=== PATIENT | male | born 1965 | race Two or more races ===

== ENCOUNTER 2019-11-01 22:02 | Inpatient (IN) ==
[2019-11-01] MEDS ORDERED: ONDANSETRON 4 MG/2 ML VIAL IV STA (23:04)
[2019-11-01] MEDS ORDERED: ALUM/MAG/SIMETH/LIDO VISC 1:1 30 ML BOTTLE PO STA (23:04)
[2019-11-01] MEDS ORDERED: MORPHINE 4 MG/1 ML VIAL IV STA (23:04)
[2019-11-01] MEDS ORDERED: NITROGLYCERIN 2% OINT 1 INCH/GM PACK TOP STA (23:04)
[2019-11-01] MEDS ORDERED: ASPIRIN 325 MG TABLET PO STA (23:04)
[2019-11-02 00:10] LABS: Basophils # 0.1 10*3/uL (0.0-0.2); Basophils % 0.7 % (0.0-0.8); Eosinophils # 0.2 10*3/uL (0.0-0.87); Eosinophils % 2.5 % (0.00-10.9); Hematocrit 39.4 VOL% (42.0-52.0); Hemoglobin 12.6 GM/DL (14.0-18.0); Immature Granulocytes % 0.4 %; Immature Granulocytes Absolute 0.03 #; Lymphocytes # 1.3 10*3/uL (1.4-4.0); Lymphocytes % 18.2 % (21.2-54.2); Mean Corpuscular Volume 99.2 FL (87-102); Mean Platelet Volume 11.1 FL (9.6-12.0); Monocytes % 6.8 % (1.7-12.7); Neutrophils % 71.4 % (38.7-73.9); Platelet Count 272 T/CUMM (130-400); Red Blood Count 3.97 MC/CUMM (3.8-5.5); Red Cell Distribution Width 14.5 % (9.3-17.3); White Blood Count 7.1 T/CUMM (4-12)
[2019-11-02] MEDS ORDERED: hydrALAZINE 20 MG/1 ML VIAL IV STA ×2 (00:53→05:47)
[2019-11-02] MEDS ORDERED: hydrALAZINE 20 MG/1 ML VIAL ONE (00:57)
[2019-11-02 03:25] LABS: Albumin 3.3 G/DL (3.4-5.0); Bilirubin,Total 0.9 MG/DL (0.2-1.0); Calcium 9.2 MG/DL (8.5-10.1); Osmolality,Calculated 278.8 MOS/KG (273-304); Total Protein 6.3 G/DL (6.4-8.3)
[2019-11-02] MEDS ORDERED: MORPHINE 4 MG/1 ML VIAL IV PRN (04:08)
[2019-11-02] MEDS ORDERED: ONDANSETRON 4 MG/2 ML VIAL IV PRN (04:08)
[2019-11-02] MEDS ORDERED: ACETAMINOPHEN 325 MG TABLET PO PRN (04:08)
[2019-11-02 05:16] LABS: INR 1.1
[2019-11-02 05:59] LABS: Risk Ratio 2.19; VLDL CHOLESTEROL 18.8 MG/DL
[2019-11-02] MEDS ORDERED: GLUCAGON 1 MG VIAL IM PRN (06:14)
[2019-11-02] MEDS ORDERED: DEXTROSE 50% 25 GM/50 ML SYRINGE IV PRN (06:24)
[2019-11-02] MEDS: INSULIN REGULAR 100 UNIT/ML SUBCUT SCH ×4 (07:53→22:46)
[2019-11-02] MEDS: CLOPIDOGREL 75 MG TABLET PO SCH (10:35)
[2019-11-02] MEDS: LOSARTAN 25 MG TABLET PO SCH (10:35)
[2019-11-02] MEDS: ASPIRIN EC 81 MG TABLET PO SCH (10:35)
[2019-11-02] MEDS: ATORVASTATIN 40 MG TABLET PO SCH (10:35)
[2019-11-02] MEDS: PANTOPRAZOLE 40 MG TABLET PO SCH (10:36)
[2019-11-02] MEDS: METOPROLOL TARTRATE 25 MG TABLET PO SCH ×2 (10:36→21:46)
[2019-11-02] MEDS: ENOXAPARIN 30 MG/0.3 ML SYRINGE SUBCUT SCH (10:40)
[2019-11-02] MEDS: amLODIPine 5 MG TABLET PO SCH (13:05)
[2019-11-02 13:18] LABS: Troponin I 0.361 NG/ML (0.00-0.045)
[2019-11-02] MEDS: GABAPENTIN 300 MG CAPSULE PO SCH (21:46)
[2019-11-02] MEDS: TAMSULOSIN 0.4 MG CAPSULE PO SCH (21:46)
[2019-11-02] MEDS: traZODone 50 MG TABLET PO SCH (21:46)
[2019-11-02] MEDS: NON-FORMULARY MEDICATION (Dextromethorphan-Quinidine [Nuedexta] 1 CAPSULE) PO SCH (22:47)
[2019-11-03 05:49] LABS: Basophils # 0.1 10*3/uL (0.0-0.2); Eosinophils # 0.2 10*3/uL (0.0-0.87); Eosinophils % 3.3 % (0.00-10.9); Hematocrit 38.6 VOL% (42.0-52.0); Hemoglobin 11.8 GM/DL (14.0-18.0); Immature Granulocytes % 0.2 %; Immature Granulocytes Absolute 0.01 #; Lymphocytes # 1.6 10*3/uL (1.4-4.0); Lymphocytes % 25.6 % (21.2-54.2); Mean Corpuscular HGB Conc 30.6 GM/DL (32-36); Mean Platelet Volume 11.4 FL (9.6-12.0); Monocytes % 8.3 % (1.7-12.7); Neutrophils % 61.6 % (38.7-73.9); Platelet Count 243 T/CUMM (130-400); Red Blood Count 3.82 MC/CUMM (3.8-5.5); Red Cell Distribution Width 14.4 % (9.3-17.3); White Blood Count 6.3 T/CUMM (4-12)
[2019-11-03 06:05] LABS: Calcium 8.4 MG/DL (8.5-10.1); Osmolality,Calculated 277.7 MOS/KG (273-304)
[2019-11-03 06:41] LABS: Troponin I 0.553 NG/ML (0.00-0.045)
[2019-11-03] MEDS: INSULIN REGULAR 100 UNIT/ML SUBCUT SCH ×4 (10:25→21:23)
[2019-11-03] MEDS: TAMSULOSIN 0.4 MG CAPSULE PO SCH ×2 (12:59→21:15)
[2019-11-03] MEDS: METOPROLOL TARTRATE 25 MG TABLET PO SCH ×2 (12:59→21:15)
[2019-11-03] MEDS: SEVELAMER CARBONATE 800 MG TABLET PO SCH ×4 (12:59→17:35)
[2019-11-03] MEDS: ASPIRIN EC 81 MG TABLET PO SCH (12:59)
[2019-11-03] MEDS: SERTRALINE 25 MG TABLET PO SCH (12:59)
[2019-11-03] MEDS: NON-FORMULARY MEDICATION (Dextromethorphan-Quinidine [Nuedexta] 1 CAPSULE) PO SCH ×2 (13:00→21:22)
[2019-11-03] MEDS: LOSARTAN 25 MG TABLET PO SCH (13:00)
[2019-11-03] MEDS: ATORVASTATIN 40 MG TABLET PO SCH (13:00)
[2019-11-03] MEDS: CLOPIDOGREL 75 MG TABLET PO SCH (13:00)
[2019-11-03] MEDS: amLODIPine 5 MG TABLET PO SCH (13:00)
[2019-11-03] MEDS: ENOXAPARIN 30 MG/0.3 ML SYRINGE SUBCUT SCH (13:02)
[2019-11-03] MEDS: PANTOPRAZOLE 40 MG TABLET PO SCH (13:02)
[2019-11-03] MEDS: LEVOTHYROXINE 25 MCG TABLET PO SCH (13:05)
[2019-11-03] MEDS: GABAPENTIN 300 MG CAPSULE PO SCH (21:15)
[2019-11-03] MEDS: traZODone 50 MG TABLET PO SCH (21:15)
[2019-11-04 05:45] LABS: Basophils # 0.1 10*3/uL (0.0-0.2); Basophils % 1.3 % (0.0-0.8); Eosinophils # 0.2 10*3/uL (0.0-0.87); Eosinophils % 4.2 % (0.00-10.9); Hematocrit 38.5 VOL% (42.0-52.0); Immature Granulocytes % 0.4 %; Immature Granulocytes Absolute 0.02 #; Lymphocytes # 1.7 10*3/uL (1.4-4.0); Lymphocytes % 31.6 % (21.2-54.2); Mean Corpuscular HGB Conc 31.2 GM/DL (32-36); Mean Corpuscular Volume 99.2 FL (87-102); Mean Platelet Volume 11.4 FL (9.6-12.0); Monocytes % 9.6 % (1.7-12.7); Neutrophils % 52.9 % (38.7-73.9); Platelet Count 241 T/CUMM (130-400); Red Blood Count 3.88 MC/CUMM (3.8-5.5); Red Cell Distribution Width 14.2 % (9.3-17.3); White Blood Count 5.5 T/CUMM (4-12)
[2019-11-04 06:13] LABS: Calcium 8.3 MG/DL (8.5-10.1); Osmolality,Calculated 279.8 MOS/KG (273-304)
[2019-11-04 08:02] VITALS: BP 175/77
[2019-11-04] MEDS: INSULIN REGULAR 100 UNIT/ML SUBCUT SCH ×2 (08:54→11:50)
[2019-11-04] MEDS ORDERED: ISOSORBIDE MONONITRATE 30 MG TABLET PO SCH (09:00)
[2019-11-04] MEDS ORDERED: EPOETIN ALFA 10,000 UNIT/1 ML VIAL SUBCUT SCH (09:00)
[2019-11-04] MEDS: SEVELAMER CARBONATE 800 MG TABLET PO SCH ×2 (12:29→15:42)
[2019-11-04] MEDS: TAMSULOSIN 0.4 MG CAPSULE PO SCH (15:41)
[2019-11-04] MEDS: SERTRALINE 25 MG TABLET PO SCH (15:41)
[2019-11-04] MEDS: NON-FORMULARY MEDICATION (Dextromethorphan-Quinidine [Nuedexta] 1 CAPSULE) PO SCH (15:42)
[2019-11-04] MEDS: ASPIRIN EC 81 MG TABLET PO SCH (15:42)
[2019-11-04] MEDS: amLODIPine 5 MG TABLET PO SCH (15:42)
[2019-11-04] MEDS: ENOXAPARIN 30 MG/0.3 ML SYRINGE SUBCUT SCH (15:43)
[2019-11-04] MEDS: LEVOTHYROXINE 25 MCG TABLET PO SCH (15:43)
[2019-11-04] MEDS: CLOPIDOGREL 75 MG TABLET PO SCH (15:43)
[2019-11-04] MEDS: LOSARTAN 25 MG TABLET PO SCH (15:43)
[2019-11-04] MEDS: METOPROLOL TARTRATE 25 MG TABLET PO SCH (15:43)
[2019-11-04] MEDS: ATORVASTATIN 40 MG TABLET PO SCH (15:43)
[2019-11-04] MEDS: PANTOPRAZOLE 40 MG TABLET PO SCH (15:43)
== END 2019-11-04 16:40 | disposition home or self-care (01) | DRG 291 ==
LOC: N.EDINP 22:02 → N.ED 22:02 → SUATTDRO 11-02 04:08 → N.2W 11-02 08:10 → N.TELES 11-02 18:02
PROVIDERS: ADMIT Internal Medicine; ATTEND Internal Medicine

== ENCOUNTER 2019-12-26 22:50 | Inpatient (IN) ==
[2019-12-26] MEDS ORDERED: SODIUM CHLORIDE 0.9% 500 ML IV STA (23:18)
[2019-12-26] MEDS ORDERED: ONDANSETRON 4 MG/2 ML VIAL IV STA (23:18)
[2019-12-27 00:18] LABS: Basophils # 0.1 10*3/uL (0.0-0.2); Basophils % 1.4 % (0.0-0.8); Eosinophils # 0.4 10*3/uL (0.0-0.87); Eosinophils % 5.1 % (0.00-10.9); Hemoglobin 9.2 GM/DL (14.0-18.0); Immature Granulocytes % 3.8 %; Immature Granulocytes Absolute 0.27 #; Lymphocytes # 1.9 10*3/uL (1.4-4.0); Lymphocytes % 26.5 % (21.2-54.2); Mean Corpuscular HGB Conc 31.7 GM/DL (32-36); Mean Corpuscular Volume 95.7 FL (87-102); Mean Platelet Volume 11.5 FL (9.6-12.0); Monocytes % 9.1 % (1.7-12.7); Neutrophils % 54.1 % (38.7-73.9); Platelet Count 265 T/CUMM (130-400); Red Blood Count 3.03 MC/CUMM (3.8-5.5)
[2019-12-27 00:43] LABS: Albumin 3.5 G/DL (3.4-5.0); Bilirubin,Total 0.6 MG/DL (0.2-1.0); Calcium 8.5 MG/DL (8.5-10.1); Osmolality,Calculated 305.2 MOS/KG (273-304); Total Protein 7.3 G/DL (6.4-8.3)
[2019-12-27] MEDS ORDERED: INSULIN REGULAR 100 UNIT/ML IV STA (00:49)
[2019-12-27] MEDS ORDERED: DEXTROSE 50% 25 GM/50 ML VIAL IV STA (00:49)
[2019-12-27] MEDS ORDERED: DEXTROSE 10% 250 ML IV ONE (01:24)
[2019-12-27] MEDS ORDERED: DEXTROSE 50% 25 GM/50 ML SYRINGE IV STA (01:33)
[2019-12-27] MEDS ORDERED: DEXTROSE 50% 25 GM/50 ML SYRINGE IV PRN (02:46)
[2019-12-27] MEDS ORDERED: ONDANSETRON 4 MG/2 ML VIAL IV PRN (02:46)
[2019-12-27] MEDS ORDERED: GLUCAGON 1 MG VIAL IM PRN ×2 (02:46→02:49)
[2019-12-27] MEDS ORDERED: DEXTROSE 50% 25 GM/50 ML VIAL IV PRN (02:49)
[2019-12-27] MEDS ORDERED: SODIUM POLYSTYRENE SULFATE 15 GM/60 ML BOTTLE PO STA (02:52)
[2019-12-27] MEDS ORDERED: CALCIUM GLUCONATE 1,000 MG in SODIUM CHLORIDE 0.9% 100 ML IV ONE (02:53)
[2019-12-27] MEDS ORDERED: BENZONATATE 100 MG CAPSULE PO PRN (03:02)
[2019-12-27 03:11] LABS: Risk Ratio 3.08; VLDL CHOLESTEROL 18.8 MG/DL
[2019-12-27 03:21] LABS: Thyroid Stimulating Hormone 6.51 uIU/ml (0.358-3.74)
[2019-12-27 05:22] LABS: Basophils # 0.1 10*3/uL (0.0-0.2); Eosinophils # 0.3 10*3/uL (0.0-0.87); Eosinophils % 3.7 % (0.00-10.9); Hematocrit 29.4 VOL% (42.0-52.0); Hemoglobin 9.3 GM/DL (14.0-18.0); Immature Granulocytes % 3.5 %; Immature Granulocytes Absolute 0.29 #; Lymphocytes # 1.8 10*3/uL (1.4-4.0); Lymphocytes % 21.5 % (21.2-54.2); Mean Corpuscular HGB Conc 31.6 GM/DL (32-36); Mean Corpuscular Volume 96.1 FL (87-102); Mean Platelet Volume 11.7 FL (9.6-12.0); Monocytes % 9.9 % (1.7-12.7); Neutrophils % 60.4 % (38.7-73.9); Platelet Count 277 T/CUMM (130-400); Red Blood Count 3.06 MC/CUMM (3.8-5.5); Red Cell Distribution Width 14.2 % (9.3-17.3); White Blood Count 8.4 T/CUMM (4-12)
[2019-12-27 05:34] LABS: Calcium 8.4 MG/DL (8.5-10.1); Osmolality,Calculated 313.8 MOS/KG (273-304)
[2019-12-27 06:25] LABS: Hepatitis B Core IgM Quant 0.13 Index; Hepatitis B Surface Ag Quant < 0.10 Index; Hepatitis B Surface Ag Result Negative (Negative); Hepatitis C Virus Ab Quant 0.07 Index; Hepatitis C Virus Ab Result Negative (Negative)
[2019-12-27 08:53] LABS: Apearance,Urine CLEAR (Clear); Bilirubin,Urine Negative (Negative); Blood, Urine Small mg/dL (Negative); Glucose,Urine (UA) 150 mg/dL (Negative); Ketones,Urine Negative (Negative); Mucus,Urine Occasional /LPF (Occasional); Nitrite,Urine Negative (Negative); Protein,Urine >=500 MG/DL; RBC,Urine 2 /HPF (0-4); Sperm,Urine Few /HPF (Negative); Squamous Epithelial Cell,Urine Occasional /HPF (0-10); Urine Color Yellow (Yellow); Urine Specific Gravity 1.016 (1.001-1.035); Urine Urobilinogen < 2.0 EU/DL (0.2-1.0); WBC,Urine 3 /HPF (0-6)
[2019-12-27] MEDS: INSULIN LISPRO 100 UNIT/ML SUBCUT SCH ×4 (13:42→21:26)
[2019-12-27] MEDS: FUROSEMIDE 40 MG TABLET PO SCH ×2 (13:43→13:45)
[2019-12-27] MEDS: CLOPIDOGREL 75 MG TABLET PO SCH (13:44)
[2019-12-27] MEDS: METOPROLOL TARTRATE 25 MG TABLET PO SCH ×2 (13:44→21:25)
[2019-12-27] MEDS: ISOSORBIDE MONONITRATE 30 MG TABLET PO SCH (13:45)
[2019-12-27] MEDS: SEVELAMER CARBONATE 800 MG TABLET PO SCH ×3 (13:45→17:33)
[2019-12-27] MEDS: ASPIRIN EC 81 MG TABLET PO SCH (13:45)
[2019-12-27] MEDS: TAMSULOSIN 0.4 MG CAPSULE PO SCH (13:45)
[2019-12-27] MEDS: PANTOPRAZOLE 40 MG TABLET PO SCH (13:46)
[2019-12-27] MEDS: amLODIPine 5 MG TABLET PO SCH (13:46)
[2019-12-27] MEDS: LOSARTAN 25 MG TABLET PO SCH (13:46)
[2019-12-27] MEDS: GABAPENTIN 300 MG CAPSULE PO SCH (21:25)
[2019-12-27] MEDS: INSULIN GLARGINE 100 UNIT/ML SUBCUT SCH (21:25)
[2019-12-28] MEDS: LEVOTHYROXINE 25 MCG TABLET PO SCH (06:13)
[2019-12-28] MEDS: ASPIRIN EC 81 MG TABLET PO SCH (09:27)
[2019-12-28] MEDS: amLODIPine 5 MG TABLET PO SCH (09:27)
[2019-12-28] MEDS: FUROSEMIDE 40 MG TABLET PO SCH ×2 (09:28→14:32)
[2019-12-28] MEDS: TAMSULOSIN 0.4 MG CAPSULE PO SCH (09:28)
[2019-12-28] MEDS: METOPROLOL TARTRATE 25 MG TABLET PO SCH ×2 (09:28→16:52)
[2019-12-28] MEDS: ISOSORBIDE MONONITRATE 30 MG TABLET PO SCH (09:29)
[2019-12-28] MEDS: PANTOPRAZOLE 40 MG TABLET PO SCH (09:29)
[2019-12-28] MEDS: LOSARTAN 25 MG TABLET PO SCH (09:29)
[2019-12-28] MEDS: SEVELAMER CARBONATE 800 MG TABLET PO SCH ×3 (09:29→16:52)
[2019-12-28] MEDS: CLOPIDOGREL 75 MG TABLET PO SCH (09:29)
[2019-12-28 09:30] LABS: Basophils # 0.1 10*3/uL (0.0-0.2); Basophils % 0.6 % (0.0-0.8); Eosinophils # 0.3 10*3/uL (0.0-0.87); Eosinophils % 3.3 % (0.00-10.9); Hematocrit 28.9 VOL% (42.0-52.0); Hemoglobin 9.2 GM/DL (14.0-18.0); Immature Granulocytes % 2.2 %; Immature Granulocytes Absolute 0.17 #; Lymphocytes # 1.7 10*3/uL (1.4-4.0); Lymphocytes % 22.1 % (21.2-54.2); Mean Corpuscular HGB Conc 31.8 GM/DL (32-36); Mean Corpuscular Volume 93.8 FL (87-102); Mean Platelet Volume 11.7 FL (9.6-12.0); Monocytes % 7.7 % (1.7-12.7); NRBC # 0.02 10*3/uL; Neutrophils % 64.1 % (38.7-73.9); Platelet Count 270 T/CUMM (130-400); Red Blood Count 3.08 MC/CUMM (3.8-5.5); Red Cell Distribution Width 14.3 % (9.3-17.3); White Blood Count 7.8 T/CUMM (4-12)
[2019-12-28 10:32] LABS: Calcium 8.3 MG/DL (8.5-10.1); Osmolality,Calculated 290.2 MOS/KG (273-304)
[2019-12-28] MEDS ORDERED: POLYETHYLENE GLYCOL POWDER 17 GM PACK PO PRN (11:14)
[2019-12-28] MEDS: INSULIN LISPRO 100 UNIT/ML SUBCUT SCH ×3 (12:37→23:31)
[2019-12-28] MEDS: GABAPENTIN 300 MG CAPSULE PO SCH (21:25)
[2019-12-28] MEDS: INSULIN GLARGINE 100 UNIT/ML SUBCUT SCH (21:27)
[2019-12-29 04:33] LABS: Basophils # 0.1 10*3/uL (0.0-0.2); Basophils % 0.9 % (0.0-0.8); Eosinophils # 0.2 10*3/uL (0.0-0.87); Eosinophils % 3.3 % (0.00-10.9); Hematocrit 29.1 VOL% (42.0-52.0); Hemoglobin 9.3 GM/DL (14.0-18.0); Immature Granulocytes % 1.5 %; Lymphocytes # 1.6 10*3/uL (1.4-4.0); Lymphocytes % 23.2 % (21.2-54.2); Mean Corpuscular Volume 94.8 FL (87-102); Mean Platelet Volume 11.6 FL (9.6-12.0); Monocytes % 8.2 % (1.7-12.7); Neutrophils % 62.9 % (38.7-73.9); Platelet Count 259 T/CUMM (130-400); Red Blood Count 3.07 MC/CUMM (3.8-5.5); Red Cell Distribution Width 14.1 % (9.3-17.3); White Blood Count 6.7 T/CUMM (4-12)
[2019-12-29 05:03] LABS: Calcium 8.4 MG/DL (8.5-10.1); Osmolality,Calculated 291.4 MOS/KG (273-304)
[2019-12-29] MEDS: LEVOTHYROXINE 25 MCG TABLET PO SCH (05:39)
[2019-12-29] MEDS: INSULIN LISPRO 100 UNIT/ML SUBCUT SCH ×4 (09:05→21:18)
[2019-12-29] MEDS: ISOSORBIDE MONONITRATE 30 MG TABLET PO SCH (13:24)
[2019-12-29] MEDS: ASPIRIN EC 81 MG TABLET PO SCH (13:24)
[2019-12-29] MEDS: METOPROLOL TARTRATE 25 MG TABLET PO SCH ×2 (13:24→16:38)
[2019-12-29] MEDS: amLODIPine 5 MG TABLET PO SCH (13:25)
[2019-12-29] MEDS: PANTOPRAZOLE 40 MG TABLET PO SCH (13:25)
[2019-12-29] MEDS: FUROSEMIDE 40 MG TABLET PO SCH ×2 (13:26→14:14)
[2019-12-29] MEDS: TAMSULOSIN 0.4 MG CAPSULE PO SCH (13:26)
[2019-12-29] MEDS: CLOPIDOGREL 75 MG TABLET PO SCH (13:26)
[2019-12-29] MEDS: SEVELAMER CARBONATE 800 MG TABLET PO SCH ×3 (13:26→16:38)
[2019-12-29] MEDS: LOSARTAN 25 MG TABLET PO SCH (13:27)
[2019-12-29] MEDS: GABAPENTIN 300 MG CAPSULE PO SCH (21:18)
[2019-12-29] MEDS: INSULIN GLARGINE 100 UNIT/ML SUBCUT SCH (21:22)
[2019-12-30] MEDS: LEVOTHYROXINE 25 MCG TABLET PO SCH (06:21)
[2019-12-30] MEDS: INSULIN LISPRO 100 UNIT/ML SUBCUT SCH ×3 (07:42→15:39)
[2019-12-30] MEDS: PANTOPRAZOLE 40 MG TABLET PO SCH (08:13)
[2019-12-30] MEDS: METOPROLOL TARTRATE 25 MG TABLET PO SCH (08:13)
[2019-12-30] MEDS: amLODIPine 5 MG TABLET PO SCH (08:13)
[2019-12-30] MEDS: ISOSORBIDE MONONITRATE 30 MG TABLET PO SCH (08:13)
[2019-12-30] MEDS: LOSARTAN 25 MG TABLET PO SCH (08:13)
[2019-12-30] MEDS: TAMSULOSIN 0.4 MG CAPSULE PO SCH (08:13)
[2019-12-30] MEDS: SEVELAMER CARBONATE 800 MG TABLET PO SCH ×2 (08:13→12:30)
[2019-12-30] MEDS: FUROSEMIDE 40 MG TABLET PO SCH ×2 (08:14→15:10)
[2019-12-30] MEDS: ASPIRIN EC 81 MG TABLET PO SCH (08:14)
[2019-12-30] MEDS: CLOPIDOGREL 75 MG TABLET PO SCH (08:14)
[2019-12-30 09:45] LABS: Basophils # 0.1 10*3/uL (0.0-0.2); Basophils % 1.5 % (0.0-0.8); Eosinophils # 0.2 10*3/uL (0.0-0.87); Eosinophils % 4.3 % (0.00-10.9); Hemoglobin 8.6 GM/DL (14.0-18.0); Immature Granulocytes % 0.9 %; Immature Granulocytes Absolute 0.05 #; Lymphocytes # 1.4 10*3/uL (1.4-4.0); Lymphocytes % 26.8 % (21.2-54.2); Mean Corpuscular HGB Conc 31.9 GM/DL (32-36); Mean Corpuscular Volume 95.1 FL (87-102); Mean Platelet Volume 10.9 FL (9.6-12.0); Monocytes % 8.7 % (1.7-12.7); Neutrophils % 57.8 % (38.7-73.9); Platelet Count 232 T/CUMM (130-400); Red Blood Count 2.84 MC/CUMM (3.8-5.5); Red Cell Distribution Width 13.9 % (9.3-17.3); White Blood Count 5.3 T/CUMM (4-12)
[2019-12-30 10:05] LABS: Calcium 8.1 MG/DL (8.5-10.1)
[2019-12-30 15:55] VITALS: BP 147/74
== END 2019-12-30 16:00 | disposition home health service (06) | DRG 640 ==
LOC: N.ED 22:50 → N.EDINP 12-27 02:46 → N.TELES 12-27 11:29
PROVIDERS: ADMIT Family Medicine; ATTEND Family Medicine

== ENCOUNTER 2020-02-02 00:38 | Inpatient (IN) ==
[2020-02-02] MEDS ORDERED: LORazepam 2 MG/1 ML VIAL IV STA ×2 (00:59→07:37)
[2020-02-02] MEDS ORDERED: methylPREDNISolone SOD SUC 125 MG/2 ML VIAL IV STA (01:38)
[2020-02-02] MEDS ORDERED: AZITHROMYCIN INJ 500 MG in SODIUM CHLORIDE 0.9% 250 ML IV STA (01:39)
[2020-02-02 01:57] LABS: INR 1.2; PT Patient Result 13.2 SECS (9.8-11.9); Partial Thromboplastin Time 24.2 SECS (23.9-33.8)
[2020-02-02 02:07] LABS: Alanine Aminotransferase 36 U/L (16-61); Albumin 3.3 G/DL (3.4-5.0); Alkaline Phosphatase 67 U/L (45-117); Aspartate Amino Transferase 34 U/L (0-37); Blood Urea Nitrogen 18 MG/DL (7-18); Calcium 9.4 MG/DL (8.5-10.1); Estimated Glom Filtration Rate 12 ML/MIN; Ferritin 423.3 ng/ml (26-388); Glucose 107 MG/DL (74-106); Osmolality,Calculated 274.8 MOS/KG (273-304); Total Protein 7.4 G/DL (6.4-8.3)
[2020-02-02 02:08] LABS: Troponin I 0.743 NG/ML (0.00-0.045)
[2020-02-02 02:12] LABS: Basophils # 0.1 10*3/uL (0.0-0.2); Basophils % 0.5 % (0.0-0.8); Eosinophils # 0.4 10*3/uL (0.0-0.87); Eosinophils % 3.2 % (0.00-10.9); Hematocrit 29.7 VOL% (42.0-52.0); Hemoglobin 9.6 GM/DL (14.0-18.0); Immature Granulocytes % 1.2 %; Immature Granulocytes Absolute 0.15 #; Lymphocytes # 1.8 10*3/uL (1.4-4.0); Lymphocytes % 14.7 % (21.2-54.2); Mean Corpuscular HGB Conc 32.3 GM/DL (32-36); Mean Corpuscular Volume 91.7 FL (87-102); Mean Platelet Volume 10.4 FL (9.6-12.0); Monocytes % 6.1 % (1.7-12.7); Neutrophils % 74.3 % (38.7-73.9); Platelet Count 563 T/CUMM (130-400); Red Blood Count 3.24 MC/CUMM (3.8-5.5); Red Cell Distribution Width 15.4 % (9.3-17.3); White Blood Count 12.1 T/CUMM (4-12)
[2020-02-02] MEDS ORDERED: NICOTINE 21 MG/24 HR PATCH TRANSDERM PRN (03:41)
[2020-02-02] MEDS ORDERED: GLUCAGON 1 MG VIAL IM PRN (03:41)
[2020-02-02] MEDS ORDERED: ONDANSETRON 4 MG/2 ML VIAL IV PRN (03:41)
[2020-02-02] MEDS ORDERED: DEXTROSE 50% 25 GM/50 ML VIAL IV PRN (03:41)
[2020-02-02] MEDS ORDERED: hydrALAZINE 20 MG/1 ML VIAL IV PRN (03:41)
[2020-02-02] MEDS ORDERED: ACETAMINOPHEN 325 MG TABLET PO PRN (03:41)
[2020-02-02] MEDS ORDERED: LORazepam 1 MG TABLET PO PRN (03:59)
[2020-02-02 05:53] LABS: Allen Test Positive
[2020-02-02 05:55] LABS: ABG Base Excess 8.3 MMOL/L (-2.5-2.5); ABG Oxygen Saturation 92.7 % (95-100); ABG PCO2 46.2 MM HG (35-48); ABG PH 7.463 (7.35-7.45); ABG PO2 66.3 MM HG (80-95); ABG TCO2 30.5 MMOL/L (23-27)
[2020-02-02] MEDS ORDERED: ETOMIDATE 20 MG/10 ML VIAL IV ONE (07:09)
[2020-02-02] MEDS ORDERED: VECURONIUM 10 MG VIAL IV ONE (07:11)
[2020-02-02] MEDS: INSULIN REGULAR 100 UNIT/ML SUBCUT SCH ×3 (07:38→16:59)
[2020-02-02] MEDS ORDERED: AZITHROMYCIN 250 MG TABLET PO SCH (09:00)
[2020-02-02 09:05] LABS: Hepatitis B Core IgM Quant 0.07 Index; Hepatitis B Surface Ag Quant < 0.10 Index; Hepatitis B Surface Ag Result Negative (Negative); Hepatitis C Virus Ab Quant 0.18 Index; Hepatitis C Virus Ab Result Negative (Negative)
[2020-02-02] MEDS: traMADol 50 MG TABLET PO PRN (13:18)
[2020-02-02] MEDS ORDERED: METHOCARBAMOL 750 MG TABLET PO PRN (15:00)
[2020-02-02 16:58] LABS: ABG Base Excess 5.7 MMOL/L (-2.5-2.5); ABG HCO3 29.6 MMOL/L (20-26); ABG Oxygen Saturation 95.3 % (95-100); ABG PCO2 32.4 MM HG (35-48); ABG PH 7.547 (7.35-7.45); ABG PO2 68.1 MM HG (80-95); ABG TCO2 25.6 MMOL/L (23-27); Allen Test Positive
[2020-02-02] MEDS: ALPRAZolam 0.25 MG TABLET PO PRN (17:30)
[2020-02-02] MEDS ORDERED: LORazepam 2 MG/1 ML VIAL IV ONE (17:44)
[2020-02-02] MEDS ORDERED: LORazepam 2 MG/1 ML VIAL ONE (17:47)
[2020-02-02] MEDS: SEVELAMER CARBONATE 800 MG TABLET PO SCH (17:50)
[2020-02-02] MEDS: NON-FORMULARY MEDICATION PO SCH (18:00)
[2020-02-03] MEDS: INSULIN REGULAR 100 UNIT/ML SUBCUT SCH ×5 (01:28→23:15)
[2020-02-03 04:39] LABS: ABG Base Excess 7.6 MMOL/L (-2.5-2.5); ABG HCO3 31.2 MMOL/L (20-26); ABG Oxygen Saturation 87.1 % (95-100); ABG PCO2 47.1 MM HG (35-48); ABG PH 7.448 (7.35-7.45); ABG TCO2 30.1 MMOL/L (23-27); Allen Test Positive
[2020-02-03] MEDS: NON-FORMULARY MEDICATION PO SCH ×2 (06:25→17:50)
[2020-02-03 08:07] LABS: Basophils % 0.2 % (0.0-0.8); Eosinophils # 0.1 10*3/uL (0.0-0.87); Eosinophils % 0.7 % (0.00-10.9); Hematocrit 28.3 VOL% (42.0-52.0); Hemoglobin 9.1 GM/DL (14.0-18.0); Immature Granulocytes % 1.2 %; Immature Granulocytes Absolute 0.15 #; Lymphocytes # 1.5 10*3/uL (1.4-4.0); Lymphocytes % 12.2 % (21.2-54.2); Mean Corpuscular HGB Conc 32.2 GM/DL (32-36); Mean Corpuscular Volume 93.4 FL (87-102); Mean Platelet Volume 10.2 FL (9.6-12.0); Monocytes % 6.7 % (1.7-12.7); Platelet Count 487 T/CUMM (130-400); Red Blood Count 3.03 MC/CUMM (3.8-5.5); White Blood Count 12.7 T/CUMM (4-12)
[2020-02-03 08:23] LABS: Calcium 9.6 MG/DL (8.5-10.1); Osmolality,Calculated 284.7 MOS/KG (273-304)
[2020-02-03] MEDS: TAMSULOSIN 0.4 MG CAPSULE PO SCH (08:43)
[2020-02-03] MEDS: SEVELAMER CARBONATE 800 MG TABLET PO SCH ×3 (08:43→17:50)
[2020-02-03] MEDS: ASPIRIN EC 81 MG TABLET PO SCH (08:43)
[2020-02-03] MEDS: ATORVASTATIN 40 MG TABLET PO SCH (08:44)
[2020-02-03] MEDS: amLODIPine 5 MG TABLET PO SCH (08:44)
[2020-02-03] MEDS: ISOSORBIDE MONONITRATE 30 MG TABLET PO SCH (08:44)
[2020-02-03] MEDS: LEVOTHYROXINE 50 MCG TABLET PO SCH (08:45)
[2020-02-03] MEDS: CLOPIDOGREL 75 MG TABLET PO SCH (08:45)
[2020-02-03] MEDS: AZITHROMYCIN 250 MG TABLET PO SCH (09:45)
[2020-02-03] MEDS: cefTRIAXone 1,000 MG in SYRINGE 1 EACH IV SCH (10:50)
[2020-02-04] MEDS: NON-FORMULARY MEDICATION PO SCH ×2 (06:30→18:25)
[2020-02-04] MEDS: INSULIN REGULAR 100 UNIT/ML SUBCUT SCH ×3 (06:30→18:24)
[2020-02-04] MEDS: cefTRIAXone 1,000 MG in SYRINGE 1 EACH IV SCH (08:30)
[2020-02-04] MEDS: SEVELAMER CARBONATE 800 MG TABLET PO SCH ×3 (08:58→18:30)
[2020-02-04] MEDS: ISOSORBIDE MONONITRATE 30 MG TABLET PO SCH (12:28)
[2020-02-04] MEDS: ASPIRIN EC 81 MG TABLET PO SCH (12:28)
[2020-02-04] MEDS: TAMSULOSIN 0.4 MG CAPSULE PO SCH (12:28)
[2020-02-04] MEDS: ATORVASTATIN 40 MG TABLET PO SCH (12:29)
[2020-02-04] MEDS: LEVOTHYROXINE 50 MCG TABLET PO SCH (12:29)
[2020-02-04] MEDS: AZITHROMYCIN 250 MG TABLET PO SCH (12:29)
[2020-02-04] MEDS: CLOPIDOGREL 75 MG TABLET PO SCH (12:29)
[2020-02-04] MEDS: amLODIPine 5 MG TABLET PO SCH (12:29)
[2020-02-04] MEDS: traMADol 50 MG TABLET PO PRN ×2 (12:57→20:00)
[2020-02-05] MEDS: INSULIN REGULAR 100 UNIT/ML SUBCUT SCH ×4 (00:01→17:30)
[2020-02-05] MEDS: NON-FORMULARY MEDICATION PO SCH ×2 (05:28→17:31)
[2020-02-05 06:19] LABS: Basophils # 0.1 10*3/uL (0.0-0.2); Basophils % 0.7 % (0.0-0.8); Eosinophils # 0.7 10*3/uL (0.0-0.87); Eosinophils % 8.4 % (0.00-10.9); Hematocrit 32.1 VOL% (42.0-52.0); Hemoglobin 10.1 GM/DL (14.0-18.0); Immature Granulocytes % 1.4 %; Immature Granulocytes Absolute 0.11 #; Lymphocytes # 1.9 10*3/uL (1.4-4.0); Lymphocytes % 23.7 % (21.2-54.2); Mean Corpuscular HGB Conc 31.5 GM/DL (32-36); Mean Corpuscular Volume 93.9 FL (87-102); Mean Platelet Volume 10.5 FL (9.6-12.0); Monocytes % 8.7 % (1.7-12.7); Neutrophils % 57.1 % (38.7-73.9); Platelet Count 518 T/CUMM (130-400); Red Blood Count 3.42 MC/CUMM (3.8-5.5); White Blood Count 8.1 T/CUMM (4-12)
[2020-02-05 07:18] LABS: Calcium 9.6 MG/DL (8.5-10.1)
[2020-02-05] MEDS: ALPRAZolam 0.25 MG TABLET PO PRN (08:33)
[2020-02-05] MEDS: ASPIRIN EC 81 MG TABLET PO SCH (08:33)
[2020-02-05] MEDS: SEVELAMER CARBONATE 800 MG TABLET PO SCH ×3 (08:34→16:56)
[2020-02-05] MEDS: amLODIPine 5 MG TABLET PO SCH (08:34)
[2020-02-05] MEDS: LEVOTHYROXINE 50 MCG TABLET PO SCH (08:34)
[2020-02-05] MEDS: ISOSORBIDE MONONITRATE 30 MG TABLET PO SCH (08:34)
[2020-02-05] MEDS: CLOPIDOGREL 75 MG TABLET PO SCH (08:34)
[2020-02-05] MEDS: ATORVASTATIN 40 MG TABLET PO SCH (08:34)
[2020-02-05] MEDS: TAMSULOSIN 0.4 MG CAPSULE PO SCH (08:34)
[2020-02-05] MEDS: AZITHROMYCIN 250 MG TABLET PO SCH (08:34)
[2020-02-05] MEDS: cefTRIAXone 1,000 MG in SYRINGE 1 EACH IV SCH (09:18)
[2020-02-05 13:00] LABS: ABG Base Excess 3.5 MMOL/L (-2.5-2.5); ABG HCO3 27.5 MMOL/L (20-26); ABG Oxygen Saturation 98.7 % (95-100); ABG PCO2 44.4 MM HG (35-48); ABG PH 7.415 (7.35-7.45)
[2020-02-06] MEDS: INSULIN REGULAR 100 UNIT/ML SUBCUT SCH ×2 (01:06→05:41)
[2020-02-06] MEDS: NON-FORMULARY MEDICATION PO SCH (05:41)
[2020-02-06] MEDS: TAMSULOSIN 0.4 MG CAPSULE PO SCH (08:15)
[2020-02-06] MEDS: AZITHROMYCIN 250 MG TABLET PO SCH (08:15)
[2020-02-06] MEDS: LEVOTHYROXINE 50 MCG TABLET PO SCH (08:15)
[2020-02-06] MEDS: SEVELAMER CARBONATE 800 MG TABLET PO SCH (08:15)
[2020-02-06] MEDS: ASPIRIN EC 81 MG TABLET PO SCH (08:15)
[2020-02-06] MEDS: ISOSORBIDE MONONITRATE 30 MG TABLET PO SCH (08:15)
[2020-02-06] MEDS: amLODIPine 5 MG TABLET PO SCH (08:15)
[2020-02-06] MEDS: ATORVASTATIN 40 MG TABLET PO SCH (08:15)
[2020-02-06] MEDS: CLOPIDOGREL 75 MG TABLET PO SCH (08:15)
[2020-02-06 08:58] VITALS: BP 132/83
[2020-02-06] MEDS: cefTRIAXone 1,000 MG in SYRINGE 1 EACH IV SCH (10:15)
== END 2020-02-06 11:05 | disposition home health service (06) | DRG 291 ==
LOC: N.ED 00:38 → SUATTDRO 03:10 → N.EDINP 03:10 → N.2E 05:30 → N.ICU 06:29 → N.3E 02-04 15:42 → N.2E 02-04 16:51
PROVIDERS: ADMIT Internal Medicine; ATTEND Family Medicine

== ENCOUNTER 2020-06-08 10:55 | Inpatient (IN) ==
[2020-06-08 12:16] LABS: Basophils # 0.1 10*3/uL (0.0-0.2); Basophils % 0.8 % (0.0-0.8); Eosinophils # 0.3 10*3/uL (0.0-0.87); Hematocrit 21.9 VOL% (42.0-52.0); Immature Granulocytes % 0.5 %; Immature Granulocytes Absolute 0.04 #; Lymphocytes # 1.4 10*3/uL (1.4-4.0); Lymphocytes % 17.3 % (21.2-54.2); Mean Corpuscular Volume 92.8 FL (87-102); Monocytes % 7.1 % (1.7-12.7); Neutrophils % 70.3 % (38.7-73.9); Platelet Count 194 T/CUMM (130-400); Red Blood Count 2.36 MC/CUMM (3.8-5.5); Red Cell Distribution Width 16.1 % (9.3-17.3); White Blood Count 8.3 T/CUMM (4-12)
[2020-06-08 13:17] LABS: Albumin 3.5 G/DL (3.4-5.0); Bilirubin,Total 0.4 MG/DL (0.2-1.0); Calcium 9.9 MG/DL (8.5-10.1); Total Protein 6.4 G/DL (6.4-8.3)
[2020-06-08] MEDS ORDERED: INSULIN REGULAR 10 UNIT, CALCIUM GLUCONATE 1,000 MG in DEXTROSE 10% 250 ML IV ONE (13:24)
[2020-06-08] MEDS ORDERED: SODIUM POLYSTYRENE SULFATE 15 GM/60 ML BOTTLE ONE (14:45)
[2020-06-08] MEDS ORDERED: SODIUM POLYSTYRENE SULFATE 15 GM/60 ML BOTTLE PO STA (14:52)
[2020-06-08] MEDS ORDERED: ACETAMINOPHEN 325 MG TABLET PO PRN (15:39)
[2020-06-08] MEDS ORDERED: DEXTROSE 50% 25 GM/50 ML VIAL IV PRN (15:39)
[2020-06-08] MEDS ORDERED: ONDANSETRON 4 MG/2 ML VIAL IV PRN (15:39)
[2020-06-08] MEDS ORDERED: GLUCAGON 1 MG VIAL IM PRN (15:39)
[2020-06-08] MEDS ORDERED: SODIUM CHLORIDE 0.9% 1,000 ML IV PRN (15:41)
[2020-06-08] MEDS ORDERED: traMADol 50 MG TABLET PO PRN (15:42)
[2020-06-08] MEDS ORDERED: LORATADINE 10 MG TABLET PO PRN (15:42)
[2020-06-08] MEDS: SODIUM CHLORIDE 0.9% 1,000 ML IV SCH (16:15)
[2020-06-08] MEDS: INSULIN REGULAR 100 UNIT/ML SUBCUT SCH ×2 (16:15→21:28)
[2020-06-08 16:32] LABS: Hematocrit 19.2 VOL% (42.0-52.0)
[2020-06-08 16:41] LABS: Hemoglobin 6.2 GM/DL (14.0-18.0)
[2020-06-08] MEDS: CARBIDOPA/LEVODOPA 25-100 MG TABLET PO SCH (21:27)
[2020-06-08] MEDS: GABAPENTIN 300 MG CAPSULE PO SCH (21:27)
[2020-06-08] MEDS: SEVELAMER CARBONATE POWDER 2.4 GM PACK PO SCH (21:27)
[2020-06-08] MEDS: LANTHANUM 500 MG PO SCH (21:28)
[2020-06-08] MEDS: INSULIN GLARGINE 100 UNIT/ML SUBCUT SCH (21:29)
[2020-06-08] MEDS: NON-FORMULARY MEDICATION (Dextromethorphan-Quinidine [Nuedexta] 1 CAPSULE) PO SCH (21:29)
[2020-06-09] MEDS: SODIUM CHLORIDE 0.9% 1,000 ML IV SCH ×2 (01:00→20:59)
[2020-06-09] MEDS: tiZANidine 4 MG TABLET PO PRN ×2 (02:09→22:50)
[2020-06-09 03:12] LABS: Basophils # 0.1 10*3/uL (0.0-0.2); Basophils % 0.6 % (0.0-0.8); Eosinophils # 0.5 10*3/uL (0.0-0.87); Eosinophils % 6.2 % (0.00-10.9); Hematocrit 22.1 VOL% (42.0-52.0); Hemoglobin 7.2 GM/DL (14.0-18.0); Immature Granulocytes % 0.4 %; Immature Granulocytes Absolute 0.03 #; Lymphocytes # 1.6 10*3/uL (1.4-4.0); Lymphocytes % 18.5 % (21.2-54.2); Mean Corpuscular HGB Conc 32.6 GM/DL (32-36); Mean Corpuscular Volume 90.6 FL (87-102); Monocytes % 6.4 % (1.7-12.7); Neutrophils % 67.9 % (38.7-73.9); Platelet Count 251 T/CUMM (130-400); Red Blood Count 2.44 MC/CUMM (3.8-5.5); Red Cell Distribution Width 15.5 % (9.3-17.3); White Blood Count 8.4 T/CUMM (4-12)
[2020-06-09 03:27] LABS: Calcium 9.1 MG/DL (8.5-10.1); Osmolality,Calculated 293.8 MOS/KG (273-304); Risk Ratio 2.97; VLDL CHOLESTEROL 22.4 MG/DL
[2020-06-09] MEDS: LEVOTHYROXINE 50 MCG TABLET PO SCH (06:19)
[2020-06-09] MEDS ORDERED: SODIUM CHLORIDE 0.9% 1,000 ML IV PRN (07:22)
[2020-06-09] MEDS ORDERED: LIDOCAINE/PRILOCAINE CREAM 5 GM TUBE TOP ONE (09:00)
[2020-06-09 09:27] LABS: Hematocrit 21.7 VOL% (42.0-52.0)
[2020-06-09] MEDS: INSULIN REGULAR 100 UNIT/ML SUBCUT SCH ×3 (18:33→21:40)
[2020-06-09] MEDS: LANTHANUM 500 MG PO SCH ×2 (18:34→18:35)
[2020-06-09] MEDS: CARBIDOPA/LEVODOPA 25-100 MG TABLET PO SCH ×2 (18:35→21:42)
[2020-06-09] MEDS: NON-FORMULARY MEDICATION (Dextromethorphan-Quinidine [Nuedexta] 1 CAPSULE) PO SCH ×2 (18:35→21:43)
[2020-06-09] MEDS: SEVELAMER CARBONATE POWDER 2.4 GM PACK PO SCH (18:35)
[2020-06-09] MEDS: ATORVASTATIN 40 MG TABLET PO SCH (18:35)
[2020-06-09] MEDS: TAMSULOSIN 0.4 MG CAPSULE PO SCH (18:35)
[2020-06-09] MEDS: DOCUSATE/SENNA 50-8.6 MG TABLET PO SCH ×2 (18:36→21:42)
[2020-06-09] MEDS: INSULIN GLARGINE 100 UNIT/ML SUBCUT SCH (21:42)
[2020-06-09] MEDS: GABAPENTIN 300 MG CAPSULE PO SCH (21:42)
[2020-06-09 21:53] LABS: Hematocrit 23.2 VOL% (42.0-52.0); Hemoglobin 7.4 GM/DL (14.0-18.0)
[2020-06-10 02:58] LABS: Hemoglobin 8.4 GM/DL (14.0-18.0)
[2020-06-10] MEDS ORDERED: FUROSEMIDE 40 MG/4 ML VIAL IV ONE ×2 (03:38→08:56)
[2020-06-10] MEDS: LEVOTHYROXINE 50 MCG TABLET PO SCH (06:45)
[2020-06-10] MEDS ORDERED: methylPREDNISolone SOD SUC 40 MG/1 ML VIAL IV ONE (08:57)
[2020-06-10] MEDS ORDERED: ALBUTEROL/IPRATROPIUM 3 ML NEB RESP TX ONE (09:36)
[2020-06-10] MEDS: TAMSULOSIN 0.4 MG CAPSULE PO SCH (10:20)
[2020-06-10] MEDS: ATORVASTATIN 40 MG TABLET PO SCH (10:26)
[2020-06-10] MEDS: DOCUSATE/SENNA 50-8.6 MG TABLET PO SCH ×2 (10:26→20:19)
[2020-06-10] MEDS: INSULIN REGULAR 100 UNIT/ML SUBCUT SCH ×4 (10:28→20:19)
[2020-06-10] MEDS ORDERED: METOPROLOL TARTRATE 50 MG TABLET PO PRN (10:29)
[2020-06-10] MEDS: SEVELAMER CARBONATE POWDER 2.4 GM PACK PO SCH ×3 (10:35→19:01)
[2020-06-10] MEDS: LANTHANUM 500 MG PO SCH ×3 (10:35→18:59)
[2020-06-10] MEDS: NON-FORMULARY MEDICATION (Dextromethorphan-Quinidine [Nuedexta] 1 CAPSULE) PO SCH ×2 (10:36→20:19)
[2020-06-10 10:38] LABS: Alanine Aminotransferase 15 U/L (16-61); Albumin 3.7 G/DL (3.4-5.0); Alkaline Phosphatase 46 U/L (45-117); Aspartate Amino Transferase 56 U/L (0-37); Bilirubin,Total < 0.39 MG/DL (0.2-1.0); Blood Urea Nitrogen 96 MG/DL (7-18); Estimated Glom Filtration Rate 5 ML/MIN; Glucose 157 MG/DL (74-106); Osmolality,Calculated 302.1 MOS/KG (273-304); Total Protein 6.7 G/DL (6.4-8.3)
[2020-06-10 10:42] LABS: Basophils % 0.4 % (0.0-0.8); Eosinophils # 0.1 10*3/uL (0.0-0.87); Eosinophils % 0.9 % (0.00-10.9); Hematocrit 26.8 VOL% (42.0-52.0); Hemoglobin 8.6 GM/DL (14.0-18.0); Immature Granulocytes % 0.3 %; Immature Granulocytes Absolute 0.03 #; Lymphocytes # 0.9 10*3/uL (1.4-4.0); Lymphocytes % 9.5 % (21.2-54.2); Mean Corpuscular HGB Conc 32.1 GM/DL (32-36); Mean Corpuscular Volume 92.4 FL (87-102); Mean Platelet Volume 10.6 FL (9.6-12.0); Monocytes % 5.6 % (1.7-12.7); Neutrophils % 83.3 % (38.7-73.9); Platelet Count 234 T/CUMM (130-400); Red Cell Distribution Width 15.9 % (9.3-17.3); White Blood Count 9.1 T/CUMM (4-12)
[2020-06-10] MEDS ORDERED: hydrALAZINE 20 MG/1 ML VIAL IV PRN (11:04)
[2020-06-10] MEDS: CARBIDOPA/LEVODOPA 25-100 MG TABLET PO SCH ×2 (11:38→20:19)
[2020-06-10] MEDS: LOSARTAN 25 MG TABLET PO SCH (12:38)
[2020-06-10] MEDS: NITROGLYCERIN 2% OINT 1 INCH/GM PACK TOP SCH ×2 (12:39→19:01)
[2020-06-10] MEDS: ENOXAPARIN 80 MG/0.8 ML SYRINGE SUBCUT SCH (12:39)
[2020-06-10] MEDS: ISOSORBIDE MONONITRATE 30 MG TABLET PO SCH (12:39)
[2020-06-10 13:12] LABS: CKMB % 1.7 %
[2020-06-10 13:15] LABS: Troponin I 6.61 NG/ML (0.00-0.045)
[2020-06-10] MEDS: GABAPENTIN 300 MG CAPSULE PO SCH (20:19)
[2020-06-10] MEDS: tiZANidine 4 MG TABLET PO PRN (20:19)
[2020-06-10] MEDS: INSULIN GLARGINE 100 UNIT/ML SUBCUT SCH (20:20)
[2020-06-10] MEDS: MORPHINE 4 MG/1 ML VIAL IV PRN (22:02)
[2020-06-11] MEDS: NITROGLYCERIN 2% OINT 1 INCH/GM PACK TOP SCH ×5 (00:39→20:32)
[2020-06-11] MEDS: LEVOTHYROXINE 50 MCG TABLET PO SCH (06:28)
[2020-06-11] MEDS: DOCUSATE/SENNA 50-8.6 MG TABLET PO SCH ×2 (08:15→20:08)
[2020-06-11] MEDS: CARBIDOPA/LEVODOPA 25-100 MG TABLET PO SCH ×2 (08:15→20:09)
[2020-06-11] MEDS: TAMSULOSIN 0.4 MG CAPSULE PO SCH (08:15)
[2020-06-11] MEDS: SEVELAMER CARBONATE POWDER 2.4 GM PACK PO SCH ×3 (08:15→17:50)
[2020-06-11] MEDS: ISOSORBIDE MONONITRATE 30 MG TABLET PO SCH (08:15)
[2020-06-11] MEDS: LOSARTAN 25 MG TABLET PO SCH (08:15)
[2020-06-11] MEDS: ATORVASTATIN 40 MG TABLET PO SCH (08:15)
[2020-06-11] MEDS: METOPROLOL TARTRATE 25 MG TABLET PO SCH ×2 (08:19→20:09)
[2020-06-11] MEDS: INSULIN REGULAR 100 UNIT/ML SUBCUT SCH ×4 (08:19→20:04)
[2020-06-11] MEDS: LANTHANUM 500 MG PO SCH ×3 (09:35→17:47)
[2020-06-11] MEDS: ENOXAPARIN 80 MG/0.8 ML SYRINGE SUBCUT SCH (10:29)
[2020-06-11] MEDS: NON-FORMULARY MEDICATION (Dextromethorphan-Quinidine [Nuedexta] 1 CAPSULE) PO SCH ×2 (11:15→20:08)
[2020-06-11] MEDS: CLOPIDOGREL 75 MG TABLET PO SCH (13:52)
[2020-06-11] MEDS: MORPHINE 4 MG/1 ML VIAL IV PRN (19:48)
[2020-06-11] MEDS: INSULIN GLARGINE 100 UNIT/ML SUBCUT SCH (20:05)
[2020-06-11] MEDS: GABAPENTIN 300 MG CAPSULE PO SCH (20:09)
[2020-06-12] MEDS: NITROGLYCERIN 2% OINT 1 INCH/GM PACK TOP SCH ×3 (01:52→12:26)
[2020-06-12 05:05] LABS: Basophils % 0.5 % (0.0-0.8); Eosinophils # 0.3 10*3/uL (0.0-0.87); Eosinophils % 5.6 % (0.00-10.9); Hematocrit 25.4 VOL% (42.0-52.0); Hemoglobin 8.1 GM/DL (14.0-18.0); Immature Granulocytes % 0.4 %; Immature Granulocytes Absolute 0.02 #; Lymphocytes # 1.1 10*3/uL (1.4-4.0); Lymphocytes % 18.5 % (21.2-54.2); Mean Corpuscular HGB Conc 31.9 GM/DL (32-36); Mean Platelet Volume 11.2 FL (9.6-12.0); Monocytes % 7.7 % (1.7-12.7); Neutrophils % 67.3 % (38.7-73.9); Platelet Count 248 T/CUMM (130-400); Red Blood Count 2.79 MC/CUMM (3.8-5.5); Red Cell Distribution Width 15.9 % (9.3-17.3); White Blood Count 5.7 T/CUMM (4-12)
[2020-06-12 05:30] LABS: Calcium 8.9 MG/DL (8.5-10.1)
[2020-06-12] MEDS: LEVOTHYROXINE 50 MCG TABLET PO SCH (05:39)
[2020-06-12] MEDS: INSULIN REGULAR 100 UNIT/ML SUBCUT SCH ×4 (07:51→20:53)
[2020-06-12] MEDS: SEVELAMER CARBONATE POWDER 2.4 GM PACK PO SCH ×3 (08:02→17:10)
[2020-06-12] MEDS: LANTHANUM 500 MG PO SCH ×3 (08:02→17:10)
[2020-06-12] MEDS ORDERED: ENOXAPARIN 30 MG/0.3 ML SYRINGE SUBCUT SCH (09:00)
[2020-06-12] MEDS: HEPARIN 5,000 UNIT/1 ML VIAL SUBCUT SCH ×2 (09:34→17:11)
[2020-06-12] MEDS: NON-FORMULARY MEDICATION (Dextromethorphan-Quinidine [Nuedexta] 1 CAPSULE) PO SCH ×3 (09:34→21:05)
[2020-06-12] MEDS: ISOSORBIDE MONONITRATE 30 MG TABLET PO SCH (09:35)
[2020-06-12] MEDS: TAMSULOSIN 0.4 MG CAPSULE PO SCH (09:35)
[2020-06-12] MEDS: METOPROLOL TARTRATE 25 MG TABLET PO SCH ×2 (09:35→20:51)
[2020-06-12] MEDS: DOCUSATE/SENNA 50-8.6 MG TABLET PO SCH ×2 (09:35→20:56)
[2020-06-12] MEDS: CARBIDOPA/LEVODOPA 25-100 MG TABLET PO SCH ×2 (09:36→20:51)
[2020-06-12] MEDS: LOSARTAN 25 MG TABLET PO SCH (09:36)
[2020-06-12] MEDS: CLOPIDOGREL 75 MG TABLET PO SCH (09:36)
[2020-06-12] MEDS: ATORVASTATIN 40 MG TABLET PO SCH (09:36)
[2020-06-12] MEDS: tiZANidine 4 MG TABLET PO PRN ×2 (09:42→20:51)
[2020-06-12] MEDS ORDERED: MAGNESIUM CITRATE 300 ML BOTTLE PO PRN (11:14)
[2020-06-12] MEDS ORDERED: clonazePAM 0.5 MG TABLET PO PRN (11:15)
[2020-06-12] MEDS ORDERED: ZALEPLON 5 MG CAPSULE PO PRN (11:15)
[2020-06-12] MEDS: POLYETHYLENE GLYCOL POWDER 17 GM PACK PO SCH (12:26)
[2020-06-12] MEDS: LACTULOSE 20 GM/30 ML UDCUP PO PRN ×2 (17:11→20:52)
[2020-06-12] MEDS: GABAPENTIN 300 MG CAPSULE PO SCH (20:51)
[2020-06-12] MEDS: INSULIN GLARGINE 100 UNIT/ML SUBCUT SCH (20:53)
[2020-06-13] MEDS: HEPARIN 5,000 UNIT/1 ML VIAL SUBCUT SCH ×2 (01:03→08:27)
[2020-06-13 06:17] LABS: Basophils # 0.1 10*3/uL (0.0-0.2); Basophils % 0.9 % (0.0-0.8); Eosinophils # 0.7 10*3/uL (0.0-0.87); Eosinophils % 12.4 % (0.00-10.9); Hemoglobin 7.7 GM/DL (14.0-18.0); Immature Granulocytes % 0.3 %; Immature Granulocytes Absolute 0.02 #; Lymphocytes # 1.5 10*3/uL (1.4-4.0); Lymphocytes % 25.3 % (21.2-54.2); Mean Corpuscular HGB Conc 32.1 GM/DL (32-36); Mean Corpuscular Volume 93.8 FL (87-102); Mean Platelet Volume 11.3 FL (9.6-12.0); Monocytes % 9.9 % (1.7-12.7); Neutrophils % 51.2 % (38.7-73.9); Platelet Count 250 T/CUMM (130-400); Red Blood Count 2.56 MC/CUMM (3.8-5.5); Red Cell Distribution Width 15.8 % (9.3-17.3); White Blood Count 5.9 T/CUMM (4-12)
[2020-06-13] MEDS: LEVOTHYROXINE 50 MCG TABLET PO SCH (06:27)
[2020-06-13 06:37] LABS: Calcium 8.7 MG/DL (8.5-10.1); Osmolality,Calculated 299.7 MOS/KG (273-304)
[2020-06-13 06:54] LABS: Eosinophils 9 % (0-10); Hypochromasia 1+; Lymphocytes 22 % (20-55); Platelet Estimate Adequate; Segmented Neutrophils 60 % (50-85); Total Cells Counted 100
[2020-06-13] MEDS: LANTHANUM 500 MG PO SCH ×2 (08:20→11:47)
[2020-06-13] MEDS: ISOSORBIDE MONONITRATE 30 MG TABLET PO SCH (08:24)
[2020-06-13] MEDS: TAMSULOSIN 0.4 MG CAPSULE PO SCH (08:24)
[2020-06-13] MEDS: ATORVASTATIN 40 MG TABLET PO SCH (08:24)
[2020-06-13] MEDS: CLOPIDOGREL 75 MG TABLET PO SCH (08:24)
[2020-06-13] MEDS: CARBIDOPA/LEVODOPA 25-100 MG TABLET PO SCH (08:25)
[2020-06-13] MEDS: DOCUSATE/SENNA 50-8.6 MG TABLET PO SCH (08:26)
[2020-06-13] MEDS: NON-FORMULARY MEDICATION (Dextromethorphan-Quinidine [Nuedexta] 1 CAPSULE) PO SCH (08:27)
[2020-06-13] MEDS: METOPROLOL TARTRATE 25 MG TABLET PO SCH (08:28)
[2020-06-13] MEDS: INSULIN REGULAR 100 UNIT/ML SUBCUT SCH ×2 (08:36→11:47)
[2020-06-13] MEDS: POLYETHYLENE GLYCOL POWDER 17 GM PACK PO SCH (08:37)
[2020-06-13] MEDS: SEVELAMER CARBONATE POWDER 2.4 GM PACK PO SCH ×2 (08:37→11:47)
[2020-06-13] MEDS: LOSARTAN 25 MG TABLET PO SCH (10:11)
[2020-06-13 11:51] VITALS: BP 137/67
== END 2020-06-13 15:08 | disposition home or self-care (01) | DRG 811 ==
LOC: N.ED 10:55 → N.EDINP 10:55 → N.3E 16:34 → SUATTDRO 06-09 15:31 → N.ICU 06-10 11:41 → N.5E 06-11 14:51
PROVIDERS: ADMIT Internal Medicine; ATTEND Internal Medicine

== ENCOUNTER 2020-12-15 21:59 | Observation (INO) ==
[2020-12-15 22:31] LABS: Basophils % 0.3 % (0.0-0.8); Eosinophils # 0.2 10*3/uL (0.0-0.87); Eosinophils % 2.8 % (0.00-10.9); Hematocrit 39.8 VOL% (42.0-52.0); Hemoglobin 12.9 GM/DL (14.0-18.0); Immature Granulocytes % 0.6 %; Immature Granulocytes Absolute 0.05 #; Lymphocytes # 1.1 10*3/uL (1.4-4.0); Mean Corpuscular HGB Conc 32.4 GM/DL (32-36); Mean Corpuscular Volume 96.8 FL (87-102); Mean Platelet Volume 10.8 FL (9.6-12.0); Monocytes % 4.7 % (1.7-12.7); Neutrophils % 78.6 % (38.7-73.9); Platelet Count 271 T/CUMM (130-400); Red Blood Count 4.11 MC/CUMM (3.8-5.5); Red Cell Distribution Width 17.8 % (9.3-17.3); White Blood Count 8.6 T/CUMM (4-12)
[2020-12-15 22:48] LABS: INR 1.1; PT Patient Result 11.9 SECS (9.8-11.9)
[2020-12-15] MEDS ORDERED: ONDANSETRON 4 MG/2 ML VIAL IV ONE (22:54)
[2020-12-15] MEDS ORDERED: hydrALAZINE 20 MG/1 ML VIAL IV STA (22:54)
[2020-12-15 23:09] LABS: Albumin 3.8 G/DL (3.4-5.0); Bilirubin,Total 0.4 MG/DL (0.2-1.0); Calcium 9.5 MG/DL (8.5-10.1); Osmolality,Calculated 281.1 MOS/KG (273-304); Total Protein 7.3 G/DL (6.4-8.3)
[2020-12-15] MEDS ORDERED: NITROGLYCERIN 2% OINT 1 INCH/GM PACK TOP STA (23:44)
[2020-12-16] MEDS ORDERED: ACETAMINOPHEN 325 MG TABLET PO PRN
[2020-12-16] MEDS ORDERED: ONDANSETRON 4 MG/2 ML VIAL IV PRN
[2020-12-16] MEDS ORDERED: DEXTROSE 50% 25 GM/50 ML VIAL IV PRN
[2020-12-16] MEDS ORDERED: hydrALAZINE 20 MG/1 ML VIAL IV PRN
[2020-12-16] MEDS ORDERED: GLUCAGON 1 MG VIAL IM PRN
[2020-12-16] MEDS: INSULIN REGULAR 100 UNIT/ML SUBCUT SCH ×3 (01:03→12:45)
[2020-12-16] MEDS ORDERED: cloNIDine 0.1 MG TABLET PO PRN (01:36)
[2020-12-16] MEDS ORDERED: CLORAZEPATE 3.75 MG TABLET PO PRN (01:36)
[2020-12-16] MEDS ORDERED: LORATADINE 10 MG TABLET PO PRN (01:36)
[2020-12-16] MEDS: HEPARIN 5,000 UNIT/1 ML VIAL SUBCUT SCH ×2 (02:57→06:24)
[2020-12-16] MEDS ORDERED: LEVOTHYROXINE 50 MCG TABLET PO SCH (06:00)
[2020-12-16] MEDS ORDERED: NITROGLYCERIN 2% OINT 1 INCH/GM PACK TOP SCH (06:00)
[2020-12-16] MEDS ORDERED: FUROSEMIDE 40 MG TABLET PO SCH (08:00)
[2020-12-16 08:31] LABS: Basophils % 0.5 % (0.0-0.8); Eosinophils # 0.4 10*3/uL (0.0-0.87); Eosinophils % 4.3 % (0.00-10.9); Hemoglobin 11.1 GM/DL (14.0-18.0); Immature Granulocytes % 0.4 %; Immature Granulocytes Absolute 0.03 #; Lymphocytes # 1.1 10*3/uL (1.4-4.0); Lymphocytes % 13.7 % (21.2-54.2); Mean Corpuscular HGB Conc 31.7 GM/DL (32-36); Mean Corpuscular Volume 97.2 FL (87-102); Mean Platelet Volume 10.9 FL (9.6-12.0); Monocytes % 5.8 % (1.7-12.7); Neutrophils % 75.3 % (38.7-73.9); Platelet Count 248 T/CUMM (130-400); Red Cell Distribution Width 17.5 % (9.3-17.3); White Blood Count 8.3 T/CUMM (4-12)
[2020-12-16 08:45] LABS: Albumin 3.3 G/DL (3.4-5.0); Bilirubin,Total 0.6 MG/DL (0.2-1.0); Calcium 8.9 MG/DL (8.5-10.1); Osmolality,Calculated 278.8 MOS/KG (273-304); Potassium 3.2 MMOL/L (3.5-5.1); Total Protein 6.2 G/DL (6.4-8.3)
[2020-12-16] MEDS ORDERED: TAMSULOSIN 0.4 MG CAPSULE PO SCH (09:00)
[2020-12-16] MEDS ORDERED: Dextromethorphan-Quinidine [Nuedexta] 20-10 mg PO SCH (09:00)
[2020-12-16] MEDS ORDERED: PANTOPRAZOLE 40 MG TABLET PO SCH (09:00)
[2020-12-16] MEDS ORDERED: ASPIRIN EC 81 MG TABLET PO SCH (09:00)
[2020-12-16] MEDS ORDERED: METOPROLOL TARTRATE 50 MG TABLET PO SCH (09:00)
[2020-12-16] MEDS ORDERED: ATORVASTATIN 40 MG TABLET PO SCH (09:00)
[2020-12-16] MEDS ORDERED: LOSARTAN 50 MG TABLET PO SCH ×2 (09:00→11:36)
[2020-12-16] MEDS ORDERED: CLOPIDOGREL 75 MG TABLET PO SCH (09:00)
[2020-12-16] MEDS ORDERED: POLYETHYLENE GLYCOL POWDER 17 GM PACK PO SCH (09:00)
[2020-12-16] MEDS ORDERED: POTASSIUM CHLORIDE 20 MEQ TABLET PO ONE (11:30)
[2020-12-16 12:00] VITALS: BP 141/59
[2020-12-16] MEDS ORDERED: MAGNESIUM HYDROXIDE SUSP 30 ML UDCUP PO SCH (12:00)
[2020-12-16] MEDS ORDERED: NON-FORMULARY MEDICATION (Insulin Lispro [Humalog U-100 Insulin] 100 unit/mL Cartridge) SUBCUT SCH (15:00)
[2020-12-16] MEDS ORDERED: PRAMIPEXOLE 0.25 MG TABLET PO SCH (21:00)
[2020-12-16] MEDS ORDERED: INSULIN GLARGINE 100 UNIT/ML SUBCUT SCH (21:00)
[2020-12-16] MEDS ORDERED: GABAPENTIN 300 MG CAPSULE PO SCH (21:00)
== END 2020-12-16 15:24 | disposition home or self-care (01) ==
LOC: N.EDINP 21:59 → N.ED 21:59 → N.4E 12-16 01:19
PROVIDERS: ADMIT Internal Medicine; ATTEND Internal Medicine

== ENCOUNTER 2022-05-03 08:51 | Inpatient (IN) ==
[2022-05-03] MEDS ORDERED: SODIUM CHLORIDE 0.9% 500 ML IV STA (09:25)
[2022-05-03] MEDS ORDERED: ONDANSETRON 4 MG/2 ML VIAL IV STA ×2 (09:25→11:37)
[2022-05-03 10:10] LABS: Basophils % 0.6 % (0.0-0.8); Eosinophils # 0.1 10*3/uL (0.0-0.87); Eosinophils % 2.3 % (0.00-10.9); Hematocrit 34.4 VOL% (42.0-52.0); Hemoglobin 10.9 GM/DL (14.0-18.0); Immature Granulocytes % 0.4 %; Immature Granulocytes Absolute 0.02 #; Lymphocytes # 0.8 10*3/uL (1.4-4.0); Lymphocytes % 17.3 % (21.2-54.2); Mean Corpuscular HGB Conc 31.7 GM/DL (32-36); Mean Corpuscular Volume 92.5 FL (87-102); Mean Platelet Volume 12.6 FL (9.6-12.0); Monocytes # 0.3 10*3/uL (0.11-0.8); Monocytes % 5.3 % (1.7-12.7); Neutrophils % 74.1 % (38.7-73.9); Platelet Count 168 T/CUMM (130-400); Red Blood Count 3.72 MC/CUMM (3.8-5.5); Red Cell Distribution Width 14.8 % (9.3-17.3); White Blood Count 4.7 T/CUMM (4-12)
[2022-05-03 10:21] LABS: Alanine Aminotransferase < 6 U/L (16-61); Albumin 3.6 G/DL (3.4-5.0); Alkaline Phosphatase 104 U/L (45-117); Aspartate Amino Transferase 22 U/L (0-37); Blood Urea Nitrogen 18 MG/DL (7-18); Calcium 8.7 MG/DL (8.5-10.1); Carbon Dioxide 29 MMOL/L (21-32); Chloride 100 MMOL/L (98-107); Glucose 88 MG/DL (74-106); Osmolality,Calculated 270.1 MOS/KG (273-304); Potassium 3.7 MMOL/L (3.5-5.1); Sodium 135 MMOL/L (136-145); Total Protein 6.6 G/DL (6.4-8.2)
[2022-05-03] MEDS ORDERED: hydrALAZINE 20 MG/1 ML VIAL IV STA (11:15)
[2022-05-03] MEDS ORDERED: ACETAMINOPHEN 325 MG TABLET ONE (11:41)
[2022-05-03] MEDS ORDERED: ACETAMINOPHEN 325 MG TABLET PO ONE (11:57)
[2022-05-03] MEDS ORDERED: GLUCAGON 1 MG VIAL IM PRN (11:58)
[2022-05-03] MEDS ORDERED: hydrALAZINE 20 MG/1 ML VIAL IV PRN (11:58)
[2022-05-03] MEDS ORDERED: DEXTROSE 10% 250 ML BAG IV PRN (12:12)
[2022-05-03] MEDS ORDERED: HYDROmorphone 1 MG/1 ML SYRINGE ONE (12:14)
[2022-05-03] MEDS ORDERED: HYDROmorphone 1 MG/1 ML SYRINGE IV STA (12:21)
[2022-05-03 12:40] LABS: Thyroid Stimulating Hormone 2.66 uIU/ml (0.358-3.74)
[2022-05-03] MEDS: PANTOPRAZOLE 40 MG VIAL IV SCH (13:48)
[2022-05-03] MEDS: LACTULOSE 20 GM/30 ML UDCUP PO SCH ×2 (13:49→20:50)
[2022-05-03] MEDS ORDERED: cloNIDine 0.1 MG/24 HR PATCH TRANSDERM SCH (14:00)
[2022-05-03 15:46] LABS: Hepatitis B Core IgM Quant < 0.05 Index; Hepatitis B Surface Ag Quant < 0.10 Index; Hepatitis B Surface Ag Result Non-Reactive (NonReactive); Hepatitis C Virus Ab Result Non-Reactive (NonReactive)
[2022-05-03] MEDS: INSULIN LISPRO 100 UNIT/ML SUBCUT SCH ×2 (16:28→20:50)
[2022-05-03] MEDS: ONDANSETRON 4 MG/2 ML VIAL IV PRN ×2 (16:30→20:50)
[2022-05-03] MEDS: HEPARIN 5,000 UNIT/1 ML VIAL SUBCUT SCH (20:50)
[2022-05-03] MEDS: DOCUSATE SODIUM 100 MG CAPSULE PO SCH (20:50)
[2022-05-03] MEDS ORDERED: ZALEPLON 5 MG CAPSULE PO PRN (22:20)
[2022-05-04] MEDS: ONDANSETRON 4 MG/2 ML VIAL IV PRN ×2 (01:03→08:47)
[2022-05-04 06:04] LABS: Basophils % 0.3 % (0.0-0.8); Eosinophils % 0.5 % (0.00-10.9); Hemoglobin 10.9 GM/DL (14.0-18.0); Immature Granulocytes Absolute 0.06 #; Lymphocytes # 0.8 10*3/uL (1.4-4.0); Lymphocytes % 14.1 % (21.2-54.2); Mean Corpuscular HGB Conc 31.1 GM/DL (32-36); Mean Corpuscular Volume 93.3 FL (87-102); Mean Platelet Volume 11.4 FL (9.6-12.0); Monocytes # 0.3 10*3/uL (0.11-0.8); Monocytes % 5.6 % (1.7-12.7); Neutrophils % 78.5 % (38.7-73.9); Platelet Count 204 T/CUMM (130-400); Red Blood Count 3.75 MC/CUMM (3.8-5.5); Red Cell Distribution Width 15.1 % (9.3-17.3); White Blood Count 5.8 T/CUMM (4-12)
[2022-05-04 06:36] LABS: Albumin 3.4 G/DL (3.4-5.0); Bilirubin,Total 0.8 MG/DL (0.20-1.00); Calcium 9.1 MG/DL (8.5-10.1); Osmolality,Calculated 279.4 MOS/KG (273-304); Potassium 3.5 MMOL/L (3.5-5.1); Risk Ratio 2.32; Total Protein 6.5 G/DL (6.4-8.2); VLDL Cholesterol 20.2 MG/DL
[2022-05-04] MEDS: DOCUSATE SODIUM 100 MG CAPSULE PO SCH ×2 (08:23→21:17)
[2022-05-04] MEDS: INSULIN LISPRO 100 UNIT/ML SUBCUT SCH ×4 (08:23→21:17)
[2022-05-04] MEDS: LACTULOSE 20 GM/30 ML UDCUP PO SCH ×2 (08:23→21:17)
[2022-05-04] MEDS: HEPARIN 5,000 UNIT/1 ML VIAL SUBCUT SCH (08:46)
[2022-05-04] MEDS: PANTOPRAZOLE 40 MG VIAL IV SCH ×2 (08:46→21:17)
[2022-05-04] MEDS ORDERED: MORPHINE 2 MG/1 ML SYRINGE IV PRN (12:05)
[2022-05-04] MEDS ORDERED: BISACODYL 10 MG SUPP RECTAL ONE (12:13)
[2022-05-04] MEDS ORDERED: cloNIDine 0.2 MG/24 HR PATCH TRANSDERM SCH (12:30)
[2022-05-04] MEDS: DEXTROSE 5% NACL 0.9% 1,000 ML IV SCH (13:53)
[2022-05-04] MEDS: cefTRIAXone 2,000 MG in SODIUM CHLORIDE 0.9% 100 ML IV SCH (13:53)
[2022-05-04] MEDS: LORazepam 0.5 MG TABLET PO PRN ×2 (13:55→21:17)
[2022-05-05] MEDS: LEVOTHYROXINE 100 MCG VIAL IV SCH (05:47)
[2022-05-05 06:17] LABS: Basophils # 0.1 10*3/uL (0.0-0.2); Eosinophils # 0.2 10*3/uL (0.0-0.87); Eosinophils % 3.1 % (0.00-10.9); Hematocrit 33.1 VOL% (42.0-52.0); Hemoglobin 10.3 GM/DL (14.0-18.0); Immature Granulocytes Absolute 0.05 #; Lymphocytes % 20.9 % (21.2-54.2); Mean Corpuscular HGB Conc 31.1 GM/DL (32-36); Mean Corpuscular Volume 94.3 FL (87-102); Mean Platelet Volume 12.5 FL (9.6-12.0); Monocytes # 0.4 10*3/uL (0.11-0.8); Monocytes % 7.9 % (1.7-12.7); Neutrophils % 66.1 % (38.7-73.9); Platelet Count 197 T/CUMM (130-400); Red Blood Count 3.51 MC/CUMM (3.8-5.5); Red Cell Distribution Width 15.4 % (9.3-17.3); White Blood Count 4.8 T/CUMM (4-12)
[2022-05-05 06:35] LABS: Calcium 8.8 MG/DL (8.5-10.1); Osmolality,Calculated 283.3 MOS/KG (273-304); Potassium 3.2 MMOL/L (3.5-5.1)
[2022-05-05] MEDS ORDERED: POTASSIUM CHLORIDE 20 MEQ TABLET PO ONE ×2 (09:00→17:00)
[2022-05-05] MEDS: INSULIN LISPRO 100 UNIT/ML SUBCUT SCH ×4 (10:00→20:20)
[2022-05-05] MEDS: hydrALAZINE 20 MG/1 ML VIAL IV PRN ×2 (11:12→18:16)
[2022-05-05] MEDS: PANTOPRAZOLE 40 MG VIAL IV SCH ×2 (11:13→20:20)
[2022-05-05] MEDS: LACTULOSE 20 GM/30 ML UDCUP PO SCH ×2 (12:34→20:20)
[2022-05-05] MEDS: DOCUSATE SODIUM 100 MG CAPSULE PO SCH ×2 (12:34→20:20)
[2022-05-05] MEDS: cefTRIAXone 2,000 MG in SODIUM CHLORIDE 0.9% 100 ML IV SCH (13:34)
[2022-05-05] MEDS: LORazepam 0.5 MG TABLET PO PRN ×2 (13:34→21:30)
[2022-05-05] MEDS: DEXTROSE 5% NACL 0.9% 1,000 ML IV SCH ×2 (17:46→23:15)
[2022-05-05] MEDS ORDERED: cloNIDine 0.3 MG/24 HR PATCH TRANSDERM SCH (21:00)
[2022-05-06] MEDS: ZALEPLON 5 MG CAPSULE PO PRN ×2 (00:55→20:50)
[2022-05-06] MEDS: GABAPENTIN 300 MG CAPSULE PO SCH ×2 (00:55→20:50)
[2022-05-06] MEDS: hydrALAZINE 20 MG/1 ML VIAL IV PRN (04:20)
[2022-05-06 05:43] LABS: Basophils % 0.8 % (0.0-0.8); Eosinophils # 0.2 10*3/uL (0.0-0.87); Eosinophils % 4.2 % (0.00-10.9); Hematocrit 35.3 VOL% (42.0-52.0); Hemoglobin 10.9 GM/DL (14.0-18.0); Immature Granulocytes % 1.2 %; Immature Granulocytes Absolute 0.06 #; Lymphocytes # 0.7 10*3/uL (1.4-4.0); Lymphocytes % 13.6 % (21.2-54.2); Mean Corpuscular HGB Conc 30.9 GM/DL (32-36); Mean Corpuscular Volume 95.1 FL (87-102); Mean Platelet Volume 11.7 FL (9.6-12.0); Monocytes # 0.3 10*3/uL (0.11-0.8); Monocytes % 5.5 % (1.7-12.7); Neutrophils % 74.7 % (38.7-73.9); Platelet Count 211 T/CUMM (130-400); Red Blood Count 3.71 MC/CUMM (3.8-5.5); Red Cell Distribution Width 15.5 % (9.3-17.3); White Blood Count 5.1 T/CUMM (4-12)
[2022-05-06 05:49] LABS: Calcium 9.1 MG/DL (8.5-10.1); Osmolality,Calculated 281.3 MOS/KG (273-304); Potassium 3.9 MMOL/L (3.5-5.1)
[2022-05-06] MEDS: LEVOTHYROXINE 100 MCG VIAL IV SCH (06:30)
[2022-05-06] MEDS ORDERED: SODIUM CHLORIDE 0.9% 500 ML IV SCH (09:00)
[2022-05-06] MEDS ORDERED: GLYCOPYRROLATE 0.4 MG/2 ML VIAL ONE (09:17)
[2022-05-06] MEDS ORDERED: LIDOCAINE 2% 5 ML VIAL ONE (09:17)
[2022-05-06] MEDS ORDERED: propofoL 200 MG/20 ML VIAL IV ONE (09:17)
[2022-05-06] MEDS: INSULIN LISPRO 100 UNIT/ML SUBCUT SCH ×4 (10:34→20:50)
[2022-05-06] MEDS: LACTULOSE 20 GM/30 ML UDCUP PO SCH ×2 (10:36→20:50)
[2022-05-06] MEDS: DOCUSATE SODIUM 100 MG CAPSULE PO SCH ×2 (10:37→20:50)
[2022-05-06] MEDS: cefTRIAXone 2,000 MG in SODIUM CHLORIDE 0.9% 100 ML IV SCH (10:39)
[2022-05-06] MEDS: PANTOPRAZOLE 40 MG VIAL IV SCH ×2 (10:43→20:50)
[2022-05-06] MEDS: ACETAMINOPHEN 325 MG TABLET PO PRN ×2 (11:46→20:55)
[2022-05-06] MEDS: DEXTROSE 5% NACL 0.9% 1,000 ML IV SCH (16:36)
[2022-05-06] MEDS: hydrALAZINE 20 MG/1 ML VIAL IV SCH ×2 (16:55→20:52)
[2022-05-06] MEDS: ONDANSETRON 4 MG/2 ML VIAL IV PRN (18:23)
[2022-05-06] MEDS: ERTAPENEM 500 MG in SODIUM CHLORIDE 0.9% 100 ML IV SCH (18:24)
[2022-05-06] MEDS: LORazepam 0.5 MG TABLET PO PRN (20:50)
[2022-05-07] MEDS: LORazepam 0.5 MG TABLET PO PRN ×2 (01:10→21:20)
[2022-05-07] MEDS: hydrALAZINE 20 MG/1 ML VIAL IV SCH ×4 (02:00→21:10)
[2022-05-07] MEDS: LEVOTHYROXINE 75 MCG TABLET PO SCH (06:10)
[2022-05-07 06:20] LABS: Osmolality,Calculated 285.1 MOS/KG (273-304)
[2022-05-07] MEDS: INSULIN LISPRO 100 UNIT/ML SUBCUT SCH ×4 (09:28→21:03)
[2022-05-07] MEDS: PANTOPRAZOLE 40 MG VIAL IV SCH ×2 (12:36→21:09)
[2022-05-07] MEDS: LACTULOSE 20 GM/30 ML UDCUP PO SCH ×2 (12:37→21:11)
[2022-05-07] MEDS: DOCUSATE SODIUM 100 MG CAPSULE PO SCH ×2 (12:38→21:11)
[2022-05-07] MEDS: DEXTROSE 5% NACL 0.9% 1,000 ML IV SCH (12:42)
[2022-05-07] MEDS: ERTAPENEM 500 MG in SODIUM CHLORIDE 0.9% 100 ML IV SCH (16:56)
[2022-05-07] MEDS: GABAPENTIN 300 MG CAPSULE PO SCH (21:11)
[2022-05-08] MEDS: ZALEPLON 5 MG CAPSULE PO PRN (00:56)
[2022-05-08] MEDS: DEXTROSE 5% NACL 0.9% 1,000 ML IV SCH (03:35)
[2022-05-08] MEDS: hydrALAZINE 20 MG/1 ML VIAL IV SCH ×2 (03:40→09:07)
[2022-05-08] MEDS: LEVOTHYROXINE 75 MCG TABLET PO SCH (05:39)
[2022-05-08 06:21] LABS: Basophils % 0.4 % (0.0-0.8); Eosinophils # 0.2 10*3/uL (0.0-0.87); Eosinophils % 4.1 % (0.00-10.9); Hematocrit 34.6 VOL% (42.0-52.0); Hemoglobin 10.6 GM/DL (14.0-18.0); Immature Granulocytes % 0.9 %; Immature Granulocytes Absolute 0.05 #; Lymphocytes # 0.7 10*3/uL (1.4-4.0); Mean Corpuscular HGB Conc 30.6 GM/DL (32-36); Mean Corpuscular Volume 95.3 FL (87-102); Mean Platelet Volume 12.6 FL (9.6-12.0); Monocytes # 0.5 10*3/uL (0.11-0.8); Monocytes % 8.6 % (1.7-12.7); Platelet Count 202 T/CUMM (130-400); Red Blood Count 3.63 MC/CUMM (3.8-5.5); Red Cell Distribution Width 16.1 % (9.3-17.3); White Blood Count 5.6 T/CUMM (4-12)
[2022-05-08 06:42] LABS: Alanine Aminotransferase < 9 U/L (16-61); Albumin 2.9 G/DL (3.4-5.0); Alkaline Phosphatase 97 U/L (45-117); Aspartate Amino Transferase 9 U/L (0-37); Blood Urea Nitrogen 16 MG/DL (7-18); Calcium 9.1 MG/DL (8.5-10.1); Carbon Dioxide 27 MMOL/L (21-32); Chloride 104 MMOL/L (98-107); Glucose 108 MG/DL (74-106); Osmolality,Calculated 276.7 MOS/KG (273-304); Sodium 138 MMOL/L (136-145); Total Protein 5.7 G/DL (6.4-8.2)
[2022-05-08] MEDS ORDERED: HYOSCYAMINE 0.125 MG TABLET PO SCH (07:00)
[2022-05-08] MEDS: INSULIN LISPRO 100 UNIT/ML SUBCUT SCH ×2 (08:12→12:05)
[2022-05-08] MEDS ORDERED: PANTOPRAZOLE 40 MG TABLET PO SCH (09:00)
[2022-05-08] MEDS: DOCUSATE SODIUM 100 MG CAPSULE PO SCH (09:07)
[2022-05-08] MEDS: LACTULOSE 20 GM/30 ML UDCUP PO SCH (09:07)
[2022-05-08 12:18] VITALS: BP 128/61
== END 2022-05-08 14:38 | disposition home or self-care (01) | DRG 391 ==
LOC: N.ED 08:51 → N.EDINP 11:58 → SUATTDRO 11:58 → N.5E 12:57
PROVIDERS: ADMIT Internal Medicine; ATTEND Family Medicine

== ENCOUNTER 2022-06-22 12:21 | Inpatient (IN) ==
[2022-06-22] MEDS ORDERED: SODIUM CHLORIDE 0.9% 500 ML IV STA (12:47)
[2022-06-22 14:34] LABS: Basophils % 0.6 % (0.0-0.8); Eosinophils % 0.6 % (0.00-10.9); Hematocrit 31.8 VOL% (42.0-52.0); Hemoglobin 10.4 GM/DL (14.0-18.0); Immature Granulocytes % 0.4 %; Immature Granulocytes Absolute 0.02 #; Lymphocytes # 0.7 10*3/uL (1.4-4.0); Lymphocytes % 12.5 % (21.2-54.2); Mean Corpuscular HGB Conc 32.7 GM/DL (32-36); Mean Corpuscular Volume 88.3 FL (87-102); Monocytes # 0.3 10*3/uL (0.11-0.8); Monocytes % 5.8 % (1.7-12.7); Neutrophils % 80.1 % (38.7-73.9); Platelet Count 107 T/CUMM (130-400); White Blood Count 5.2 T/CUMM (4-12)
[2022-06-22 14:52] LABS: Alanine Aminotransferase < 6 U/L (16-61); Albumin 3.1 G/DL (3.4-5.0); Alkaline Phosphatase 93 U/L (45-117); Aspartate Amino Transferase 19 U/L (0-37); Blood Urea Nitrogen 21 MG/DL (7-18); Calcium 8.8 MG/DL (8.5-10.1); Carbon Dioxide 26 MMOL/L (21-32); Chloride 103 MMOL/L (98-107); Glucose 92 MG/DL (74-106); Osmolality,Calculated 279.5 MOS/KG (273-304); Potassium 2.6 MMOL/L (3.5-5.1); Sodium 139 MMOL/L (136-145); Total Protein 6.1 G/DL (6.4-8.2)
[2022-06-22] MEDS ORDERED: hydrALAZINE 20 MG/1 ML VIAL ONE (15:38)
[2022-06-22] MEDS ORDERED: hydrALAZINE 20 MG/1 ML VIAL IV STA (15:43)
[2022-06-22] MEDS ORDERED: GLUCAGON 1 MG VIAL IM PRN (15:46)
[2022-06-22] MEDS ORDERED: DEXTROSE 10% 250 ML BAG IV PRN (15:46)
[2022-06-22] MEDS ORDERED: ACETAMINOPHEN 325 MG TABLET PO PRN (15:46)
[2022-06-22] MEDS ORDERED: MORPHINE 2 MG/1 ML SYRINGE IV PRN (15:46)
[2022-06-22] MEDS: POTASSIUM CHLORIDE 20 MEQ TABLET PO STA ×2 (16:12→17:40)
[2022-06-22] MEDS: ONDANSETRON 4 MG/2 ML VIAL IV PRN ×3 (16:17→23:50)
[2022-06-22] MEDS ORDERED: METOPROLOL TARTRATE 5 MG/5 ML VIAL IV STA (17:11)
[2022-06-22] MEDS ORDERED: cloNIDine 0.2 MG/24 HR PATCH TRANSDERM SCH (18:30)
[2022-06-22] MEDS: SUCRALFATE 1 GM/10 ML UDCUP PO SCH ×2 (19:22→21:55)
[2022-06-22] MEDS: INSULIN LISPRO 100 UNIT/ML SUBCUT SCH ×2 (19:22→21:56)
[2022-06-22] MEDS: HEPARIN 5,000 UNIT/1 ML VIAL SUBCUT SCH (20:32)
[2022-06-22] MEDS ORDERED: cloNIDine 0.1 MG TABLET PO SCH (21:00)
[2022-06-22] MEDS ORDERED: METOPROLOL TARTRATE 50 MG TABLET PO SCH (21:00)
[2022-06-22] MEDS ORDERED: HEPARIN 5,000 UNIT/1 ML VIAL SUBCUT SCH (21:00)
[2022-06-22] MEDS: TAMSULOSIN 0.4 MG CAPSULE PO SCH (21:55)
[2022-06-22] MEDS: GABAPENTIN 300 MG CAPSULE PO SCH (21:56)
[2022-06-22] MEDS: CARBIDOPA/LEVODOPA 25-100 MG TABLET PO SCH (21:56)
[2022-06-22] MEDS: PANTOPRAZOLE 40 MG TABLET PO SCH (21:56)
[2022-06-22] MEDS: HYOSCYAMINE 0.125 MG TABLET PO SCH (21:57)
[2022-06-22] MEDS ORDERED: POTASSIUM CHLORIDE RIDER 10 MEQ/100 ML PREMIX IV PRN (22:27)
[2022-06-22] MEDS: hydrALAZINE 20 MG/1 ML VIAL IV PRN (22:52)
[2022-06-22] MEDS ORDERED: POTASSIUM CHLORIDE RIDER 10 MEQ/100 ML PREMIX IV ONE (23:45)
[2022-06-23] MEDS ORDERED: LABETALOL 20 MG/4 ML SYRINGE IV ONE ×2 (00:03→12:30)
[2022-06-23] MEDS: hydrALAZINE 20 MG/1 ML VIAL IV PRN ×2 (04:53→12:03)
[2022-06-23] MEDS: HYOSCYAMINE 0.125 MG TABLET PO SCH ×3 (05:14→21:12)
[2022-06-23 05:45] LABS: Basophils # 0.1 10*3/uL (0.0-0.2); Eosinophils # 0.1 10*3/uL (0.0-0.87); Eosinophils % 1.2 % (0.00-10.9); Hematocrit 30.1 VOL% (42.0-52.0); Hemoglobin 9.9 GM/DL (14.0-18.0); Immature Granulocytes % 0.5 %; Immature Granulocytes Absolute 0.03 #; Lymphocytes % 16.6 % (21.2-54.2); Mean Corpuscular HGB Conc 32.9 GM/DL (32-36); Mean Corpuscular Volume 88.3 FL (87-102); Mean Platelet Volume 10.6 FL (9.6-12.0); Monocytes # 0.5 10*3/uL (0.11-0.8); Monocytes % 7.6 % (1.7-12.7); Neutrophils % 73.1 % (38.7-73.9); Platelet Count 143 T/CUMM (130-400); Red Blood Count 3.41 MC/CUMM (3.8-5.5); Red Cell Distribution Width 16.5 % (9.3-17.3)
[2022-06-23] MEDS: LEVOTHYROXINE 75 MCG TABLET PO SCH (05:45)
[2022-06-23 06:12] LABS: Calcium 8.5 MG/DL (8.5-10.1); Potassium 2.8 MMOL/L (3.5-5.1)
[2022-06-23] MEDS: SUCRALFATE 1 GM/10 ML UDCUP PO SCH ×4 (06:30→21:14)
[2022-06-23] MEDS: INSULIN LISPRO 100 UNIT/ML SUBCUT SCH ×4 (08:18→21:17)
[2022-06-23] MEDS: ONDANSETRON 4 MG/2 ML VIAL IV SCH ×3 (08:58→21:14)
[2022-06-23] MEDS ORDERED: CLOPIDOGREL 75 MG TABLET PO SCH (09:00)
[2022-06-23] MEDS ORDERED: LOSARTAN 50 MG TABLET PO SCH (09:00)
[2022-06-23] MEDS ORDERED: PANTOPRAZOLE 40 MG TABLET PO SCH (09:00)
[2022-06-23] MEDS: LOSARTAN 50 MG TABLET PO SCH (09:03)
[2022-06-23] MEDS: HEPARIN 5,000 UNIT/1 ML VIAL SUBCUT SCH ×2 (09:05→21:15)
[2022-06-23] MEDS: METOPROLOL TARTRATE 50 MG TABLET PO SCH ×2 (09:05→21:13)
[2022-06-23] MEDS: TAMSULOSIN 0.4 MG CAPSULE PO SCH ×2 (09:06→21:13)
[2022-06-23] MEDS: ASPIRIN EC 81 MG TABLET PO SCH (09:06)
[2022-06-23] MEDS: ATORVASTATIN 40 MG TABLET PO SCH (09:08)
[2022-06-23] MEDS: amLODIPine 10 MG TABLET PO SCH (09:09)
[2022-06-23] MEDS: calcitrioL 0.25 MCG CAPSULE PO SCH (09:09)
[2022-06-23] MEDS: PANTOPRAZOLE 40 MG TABLET PO SCH (09:09)
[2022-06-23] MEDS: CINACALCET 30 MG TABLET PO SCH (09:10)
[2022-06-23] MEDS: CARBIDOPA/LEVODOPA 25-100 MG TABLET PO SCH ×2 (09:11→21:13)
[2022-06-23] MEDS: MONTELUKAST 10 MG TABLET PO SCH (09:13)
[2022-06-23] MEDS: hydrALAZINE 25 MG TABLET PO SCH ×2 (13:03→21:13)
[2022-06-23] MEDS ORDERED: POTASSIUM CHLORIDE INJ 20 MEQ in LACTATED RINGERS 1,000 ML IV SCH (17:00)
[2022-06-23] MEDS ORDERED: POTASSIUM CHLORIDE 10 MEQ TABLET PO SCH (17:00)
[2022-06-23] MEDS: PANTOPRAZOLE 40 MG VIAL IV SCH (21:14)
[2022-06-23] MEDS: GABAPENTIN 300 MG CAPSULE PO SCH (21:14)
[2022-06-24] MEDS: ONDANSETRON 4 MG/2 ML VIAL IV SCH ×4 (03:59→21:46)
[2022-06-24 06:16] LABS: Basophils # 0.1 10*3/uL (0.0-0.2); Basophils % 1.2 % (0.0-0.8); Eosinophils # 0.3 10*3/uL (0.0-0.87); Eosinophils % 5.8 % (0.00-10.9); Hematocrit 27.2 VOL% (42.0-52.0); Hemoglobin 8.7 GM/DL (14.0-18.0); Immature Granulocytes % 0.5 %; Immature Granulocytes Absolute 0.02 #; Lymphocytes % 22.6 % (21.2-54.2); Monocytes # 0.4 10*3/uL (0.11-0.8); Monocytes % 8.4 % (1.7-12.7); Neutrophils % 61.5 % (38.7-73.9); Platelet Count 133 T/CUMM (130-400); Red Blood Count 3.09 MC/CUMM (3.8-5.5); Red Cell Distribution Width 17.1 % (9.3-17.3); White Blood Count 4.3 T/CUMM (4-12)
[2022-06-24 06:32] LABS: Calcium 8.4 MG/DL (8.5-10.1); Osmolality,Calculated 284.4 MOS/KG (273-304); Potassium 3.2 MMOL/L (3.5-5.1)
[2022-06-24] MEDS: HYOSCYAMINE 0.125 MG TABLET PO SCH ×3 (07:04→21:46)
[2022-06-24] MEDS: LEVOTHYROXINE 75 MCG TABLET PO SCH (07:04)
[2022-06-24] MEDS: INSULIN LISPRO 100 UNIT/ML SUBCUT SCH ×4 (08:09→21:47)
[2022-06-24] MEDS: SODIUM CHLORIDE 0.9% 500 ML IV SCH (08:30)
[2022-06-24] MEDS ORDERED: GLYCOPYRROLATE 0.4 MG/2 ML VIAL ONE (09:07)
[2022-06-24] MEDS ORDERED: propofoL 200 MG/20 ML VIAL IV ONE (09:07)
[2022-06-24] MEDS ORDERED: LIDOCAINE 2% 5 ML VIAL ONE (09:07)
[2022-06-24] MEDS: ASPIRIN EC 81 MG TABLET PO SCH (10:12)
[2022-06-24] MEDS: ATORVASTATIN 40 MG TABLET PO SCH (10:12)
[2022-06-24] MEDS: TAMSULOSIN 0.4 MG CAPSULE PO SCH ×2 (10:12→21:45)
[2022-06-24] MEDS: SUCRALFATE 1 GM/10 ML UDCUP PO SCH ×4 (10:12→21:45)
[2022-06-24] MEDS: CINACALCET 30 MG TABLET PO SCH (10:12)
[2022-06-24] MEDS: amLODIPine 10 MG TABLET PO SCH (10:13)
[2022-06-24] MEDS: calcitrioL 0.25 MCG CAPSULE PO SCH (10:13)
[2022-06-24] MEDS: METOPROLOL TARTRATE 50 MG TABLET PO SCH ×2 (10:13→21:46)
[2022-06-24] MEDS: CARBIDOPA/LEVODOPA 25-100 MG TABLET PO SCH ×2 (10:13→21:46)
[2022-06-24] MEDS: LOSARTAN 50 MG TABLET PO SCH (10:13)
[2022-06-24] MEDS: MONTELUKAST 10 MG TABLET PO SCH (10:14)
[2022-06-24] MEDS: PANTOPRAZOLE 40 MG VIAL IV SCH ×2 (10:40→21:46)
[2022-06-24] MEDS: HEPARIN 5,000 UNIT/1 ML VIAL SUBCUT SCH ×2 (10:40→21:45)
[2022-06-24] MEDS: NIFEdipine 10 MG CAPSULE PO SCH ×2 (16:42→21:46)
[2022-06-24] MEDS: cloNIDine 0.1 MG TABLET PO SCH (21:45)
[2022-06-24] MEDS: GABAPENTIN 300 MG CAPSULE PO SCH (21:46)
[2022-06-25] MEDS: ONDANSETRON 4 MG/2 ML VIAL IV SCH ×4 (02:31→21:13)
[2022-06-25] MEDS: LEVOTHYROXINE 75 MCG TABLET PO SCH (05:32)
[2022-06-25] MEDS: HYOSCYAMINE 0.125 MG TABLET PO SCH ×3 (05:32→21:25)
[2022-06-25 06:06] LABS: Basophils % 0.6 % (0.0-0.8); Eosinophils # 0.3 10*3/uL (0.0-0.87); Eosinophils % 5.7 % (0.00-10.9); Hematocrit 25.5 VOL% (42.0-52.0); Hemoglobin 8.2 GM/DL (14.0-18.0); Immature Granulocytes % 0.4 %; Immature Granulocytes Absolute 0.02 #; Lymphocytes # 0.9 10*3/uL (1.4-4.0); Lymphocytes % 17.8 % (21.2-54.2); Mean Corpuscular HGB Conc 32.2 GM/DL (32-36); Mean Corpuscular Volume 89.2 FL (87-102); Mean Platelet Volume 12.1 FL (9.6-12.0); Monocytes # 0.3 10*3/uL (0.11-0.8); Monocytes % 6.1 % (1.7-12.7); Neutrophils % 69.4 % (38.7-73.9); Platelet Count 122 T/CUMM (130-400); Red Blood Count 2.86 MC/CUMM (3.8-5.5); Red Cell Distribution Width 17.2 % (9.3-17.3); White Blood Count 4.8 T/CUMM (4-12)
[2022-06-25 06:21] LABS: Osmolality,Calculated 281.8 MOS/KG (273-304); Potassium 3.2 MMOL/L (3.5-5.1)
[2022-06-25] MEDS: INSULIN LISPRO 100 UNIT/ML SUBCUT SCH ×4 (07:56→21:48)
[2022-06-25] MEDS: SODIUM CHLORIDE 0.9% 500 ML IV SCH (07:56)
[2022-06-25] MEDS: ATORVASTATIN 40 MG TABLET PO SCH (08:07)
[2022-06-25] MEDS: SUCRALFATE 1 GM/10 ML UDCUP PO SCH ×4 (08:07→21:08)
[2022-06-25] MEDS: ASPIRIN EC 81 MG TABLET PO SCH (08:07)
[2022-06-25] MEDS: MONTELUKAST 10 MG TABLET PO SCH (08:07)
[2022-06-25] MEDS: CARBIDOPA/LEVODOPA 25-100 MG TABLET PO SCH ×2 (08:07→21:09)
[2022-06-25] MEDS: calcitrioL 0.25 MCG CAPSULE PO SCH (08:07)
[2022-06-25] MEDS: TAMSULOSIN 0.4 MG CAPSULE PO SCH ×2 (08:07→21:09)
[2022-06-25] MEDS: CINACALCET 30 MG TABLET PO SCH (08:07)
[2022-06-25] MEDS: HEPARIN 5,000 UNIT/1 ML VIAL SUBCUT SCH ×2 (08:11→21:14)
[2022-06-25] MEDS: PANTOPRAZOLE 40 MG VIAL IV SCH ×2 (08:16→21:09)
[2022-06-25] MEDS: cloNIDine 0.1 MG TABLET PO SCH ×2 (12:57→21:09)
[2022-06-25] MEDS: METOPROLOL TARTRATE 50 MG TABLET PO SCH ×2 (12:58→21:09)
[2022-06-25] MEDS: NIFEdipine 10 MG CAPSULE PO SCH ×5 (12:58→21:09)
[2022-06-25] MEDS: LOSARTAN 50 MG TABLET PO SCH (12:58)
[2022-06-25] MEDS: GABAPENTIN 300 MG CAPSULE PO SCH (21:09)
[2022-06-26] MEDS: ONDANSETRON 4 MG/2 ML VIAL IV SCH ×3 (02:15→17:10)
[2022-06-26] MEDS: HYOSCYAMINE 0.125 MG TABLET PO SCH ×2 (05:06→17:10)
[2022-06-26] MEDS: LEVOTHYROXINE 75 MCG TABLET PO SCH (05:43)
[2022-06-26 07:18] LABS: Basophils % 0.6 % (0.0-0.8); Eosinophils # 0.2 10*3/uL (0.0-0.87); Eosinophils % 6.6 % (0.00-10.9); Hemoglobin 8.2 GM/DL (14.0-18.0); Immature Granulocytes % 0.3 %; Immature Granulocytes Absolute 0.01 #; Lymphocytes # 0.8 10*3/uL (1.4-4.0); Lymphocytes % 22.7 % (21.2-54.2); Mean Corpuscular HGB Conc 31.5 GM/DL (32-36); Mean Corpuscular Volume 89.7 FL (87-102); Monocytes # 0.2 10*3/uL (0.11-0.8); Monocytes % 6.6 % (1.7-12.7); NRBC # 0.02 10*3/uL; Neutrophils % 63.2 % (38.7-73.9); Platelet Count 128 T/CUMM (130-400); Red Cell Distribution Width 17.1 % (9.3-17.3); White Blood Count 3.6 T/CUMM (4-12)
[2022-06-26 07:34] LABS: Calcium 8.1 MG/DL (8.5-10.1); Osmolality,Calculated 279.7 MOS/KG (273-304); Potassium 3.4 MMOL/L (3.5-5.1)
[2022-06-26] MEDS: SUCRALFATE 1 GM/10 ML UDCUP PO SCH ×3 (07:38→17:10)
[2022-06-26] MEDS: CARBIDOPA/LEVODOPA 25-100 MG TABLET PO SCH (08:00)
[2022-06-26] MEDS: ASPIRIN EC 81 MG TABLET PO SCH (08:00)
[2022-06-26] MEDS: LOSARTAN 50 MG TABLET PO SCH (08:00)
[2022-06-26] MEDS: calcitrioL 0.25 MCG CAPSULE PO SCH (08:00)
[2022-06-26] MEDS: CINACALCET 30 MG TABLET PO SCH (08:00)
[2022-06-26] MEDS: HEPARIN 5,000 UNIT/1 ML VIAL SUBCUT SCH (08:00)
[2022-06-26] MEDS: ATORVASTATIN 40 MG TABLET PO SCH (08:00)
[2022-06-26] MEDS: MONTELUKAST 10 MG TABLET PO SCH (08:00)
[2022-06-26] MEDS: PANTOPRAZOLE 40 MG VIAL IV SCH (08:00)
[2022-06-26] MEDS: TAMSULOSIN 0.4 MG CAPSULE PO SCH (08:00)
[2022-06-26] MEDS: INSULIN LISPRO 100 UNIT/ML SUBCUT SCH ×3 (08:48→17:10)
[2022-06-26] MEDS: SODIUM CHLORIDE 0.9% 500 ML IV SCH (08:49)
[2022-06-26 10:07] LABS: Hepatitis B Surface Ag Quant < 0.10 Index; Hepatitis B Surface Ag Result Non-Reactive (NonReactive)
[2022-06-26] MEDS: cloNIDine 0.1 MG TABLET PO SCH (13:23)
[2022-06-26] MEDS: METOPROLOL TARTRATE 50 MG TABLET PO SCH (13:24)
[2022-06-26] MEDS: NIFEdipine 10 MG CAPSULE PO SCH ×3 (13:24→17:10)
[2022-06-26 15:59] VITALS: BP 131/48
== END 2022-06-26 17:26 | disposition home or self-care (01) | DRG 391 ==
LOC: N.ED 12:21 → N.EDINP 15:46 → SUATTDRO 15:46 → N.3E 17:40
PROVIDERS: ADMIT Internal Medicine; ATTEND Hospitalist

== ENCOUNTER 2022-09-04 07:39 | Observation (INO) ==
[2022-09-04 08:25] LABS: Basophils % 0.7 % (0.0-0.8); Eosinophils # 0.2 10*3/uL (0.0-0.87); Eosinophils % 2.8 % (0.00-10.9); Hematocrit 34.9 VOL% (42.0-52.0); Hemoglobin 10.7 GM/DL (14.0-18.0); Immature Granulocytes % 0.5 %; Immature Granulocytes Absolute 0.03 #; Lymphocytes # 0.8 10*3/uL (1.4-4.0); Lymphocytes % 13.8 % (21.2-54.2); Mean Corpuscular HGB Conc 30.7 GM/DL (32-36); Mean Corpuscular Volume 93.3 FL (87-102); Mean Platelet Volume 10.8 FL (9.6-12.0); Monocytes # 0.3 10*3/uL (0.11-0.8); Neutrophils % 77.2 % (38.7-73.9); Platelet Count 199 T/CUMM (130-400); Red Blood Count 3.74 MC/CUMM (3.8-5.5); Red Cell Distribution Width 18.3 % (9.3-17.3)
[2022-09-04 08:34] LABS: INR 1.2; PT Patient Result 13.5 SECS (10.1-12.1)
[2022-09-04 08:53] LABS: Alanine Aminotransferase < 9 U/L (16-61); Albumin 3.9 G/DL (3.4-5.0); Alkaline Phosphatase 117 U/L (45-117); Aspartate Amino Transferase 13 U/L (0-37); Blood Urea Nitrogen 49 MG/DL (7-18); Calcium 8.2 MG/DL (8.5-10.1); Carbon Dioxide 26 MMOL/L (21-32); Chloride 105 MMOL/L (98-107); Glucose 120 MG/DL (74-106); Osmolality,Calculated 286.8 MOS/KG (273-304); Sodium 137 MMOL/L (136-145); Total Protein 6.5 G/DL (6.4-8.2)
[2022-09-04 08:56] LABS: Potassium 6.2 MMOL/L (3.5-5.1)
[2022-09-04] MEDS ORDERED: hydrALAZINE 20 MG/1 ML VIAL IV STA (09:14)
[2022-09-04] MEDS ORDERED: NITROGLYCERIN 2% OINT 1 INCH/GM PACK TOP STA (09:14)
[2022-09-04] MEDS ORDERED: DOCUSATE SODIUM 100 MG CAPSULE PO PRN (09:57)
[2022-09-04] MEDS ORDERED: ONDANSETRON 4 MG/2 ML VIAL IV PRN (09:57)
[2022-09-04] MEDS ORDERED: hydrALAZINE 20 MG/1 ML VIAL IV PRN (09:57)
[2022-09-04] MEDS ORDERED: DEXTROSE 10% 250 ML BAG IV PRN (10:32)
[2022-09-04] MEDS ORDERED: GLUCAGON 1 MG VIAL IM PRN (10:32)
[2022-09-04] MEDS: HEPARIN 5,000 UNIT/1 ML VIAL SUBCUT SCH ×2 (14:34→22:21)
[2022-09-04] MEDS: INSULIN LISPRO 100 UNIT/ML SUBCUT SCH ×2 (14:34→18:06)
[2022-09-04] MEDS ORDERED: ATORVASTATIN 40 MG TABLET PO SCH (21:00)
[2022-09-04] MEDS: cloNIDine 0.1 MG TABLET PO SCH (22:18)
[2022-09-04] MEDS: METOPROLOL TARTRATE 50 MG TABLET PO SCH (22:18)
[2022-09-04] MEDS: CARBIDOPA/LEVODOPA CR 25-100 MG TABLET PO SCH (22:22)
[2022-09-05] MEDS: INSULIN LISPRO 100 UNIT/ML SUBCUT SCH ×3 (00:41→12:20)
[2022-09-05 05:05] LABS: Basophils % 0.9 % (0.0-0.8); Eosinophils # 0.1 10*3/uL (0.0-0.87); Eosinophils % 2.6 % (0.00-10.9); Hematocrit 33.6 VOL% (42.0-52.0); Hemoglobin 10.4 GM/DL (14.0-18.0); Immature Granulocytes % 0.2 %; Immature Granulocytes Absolute 0.01 #; Lymphocytes # 0.8 10*3/uL (1.4-4.0); Lymphocytes % 17.9 % (21.2-54.2); Mean Corpuscular Volume 93.6 FL (87-102); Mean Platelet Volume 10.6 FL (9.6-12.0); Monocytes # 0.3 10*3/uL (0.11-0.8); Monocytes % 6.3 % (1.7-12.7); Neutrophils % 72.1 % (38.7-73.9); Platelet Count 181 T/CUMM (130-400); Red Blood Count 3.59 MC/CUMM (3.8-5.5); Red Cell Distribution Width 18.2 % (9.3-17.3); White Blood Count 4.6 T/CUMM (4-12)
[2022-09-05 05:27] LABS: Calcium 8.6 MG/DL (8.5-10.1); Osmolality,Calculated 283.7 MOS/KG (273-304); Potassium 5.3 MMOL/L (3.5-5.1)
[2022-09-05] MEDS ORDERED: LEVOTHYROXINE 75 MCG TABLET PO SCH (06:30)
[2022-09-05] MEDS ORDERED: amLODIPine 10 MG TABLET PO SCH (09:00)
[2022-09-05] MEDS ORDERED: calcitrioL 0.25 MCG CAPSULE PO SCH (09:00)
[2022-09-05] MEDS ORDERED: MONTELUKAST 10 MG TABLET PO SCH (09:00)
[2022-09-05] MEDS ORDERED: CLOPIDOGREL 75 MG TABLET PO SCH (09:00)
[2022-09-05] MEDS ORDERED: ASPIRIN EC 81 MG TABLET PO SCH (09:00)
[2022-09-05] MEDS ORDERED: TAMSULOSIN 0.4 MG CAPSULE PO SCH (09:00)
[2022-09-05] MEDS ORDERED: LOSARTAN 50 MG TABLET PO SCH (09:00)
[2022-09-05] MEDS ORDERED: PANTOPRAZOLE 40 MG TABLET PO SCH (09:00)
[2022-09-05] MEDS: HEPARIN 5,000 UNIT/1 ML VIAL SUBCUT SCH (11:50)
[2022-09-05] MEDS: cloNIDine 0.1 MG TABLET PO SCH (12:17)
[2022-09-05] MEDS: CARBIDOPA/LEVODOPA CR 25-100 MG TABLET PO SCH (12:18)
[2022-09-05] MEDS: METOPROLOL TARTRATE 50 MG TABLET PO SCH (12:18)
[2022-09-05 12:28] VITALS: BP 159/65
== END 2022-09-05 15:04 | disposition home or self-care (01) ==
LOC: N.ED 07:39 → N.EDINP 07:39 → SUATTDRO 10:15 → N.5E 14:49
PROVIDERS: ADMIT Physician Assistant; ATTEND Hospitalist

== ENCOUNTER 2022-09-29 10:01 | Inpatient (IN) ==
[2022-09-29 11:06] LABS: Basophils # 0.1 10*3/uL (0.0-0.2); Basophils % 1.3 % (0.0-0.8); Eosinophils # 0.1 10*3/uL (0.0-0.87); Eosinophils % 1.1 % (0.00-10.9); Hematocrit 31.4 VOL% (42.0-52.0); Hemoglobin 9.9 GM/DL (14.0-18.0); Immature Granulocytes % 0.4 %; Immature Granulocytes Absolute 0.02 #; Lymphocytes # 0.6 10*3/uL (1.4-4.0); Lymphocytes % 11.9 % (21.2-54.2); Mean Corpuscular HGB Conc 31.5 GM/DL (32-36); Mean Corpuscular Volume 90.5 FL (87-102); Mean Platelet Volume 12.1 FL (9.6-12.0); Monocytes # 0.3 10*3/uL (0.11-0.8); Monocytes % 6.5 % (1.7-12.7); Neutrophils % 78.8 % (38.7-73.9); Platelet Count 172 T/CUMM (130-400); Red Blood Count 3.47 MC/CUMM (3.8-5.5); Red Cell Distribution Width 17.2 % (9.3-17.3); White Blood Count 4.6 T/CUMM (4-12)
[2022-09-29 11:23] LABS: Albumin 3.6 G/DL (3.4-5.0); Bilirubin,Total 0.7 MG/DL (0.20-1.00); Calcium 7.9 MG/DL (8.5-10.1); Total Protein 6.4 G/DL (6.4-8.2)
[2022-09-29 11:24] LABS: Osmolality,Calculated 280.2 MOS/KG (273-304); Potassium 4.6 MMOL/L (3.5-5.1)
[2022-09-29] MEDS ORDERED: ACETAMINOPHEN 325 MG TABLET PO PRN (15:29)
[2022-09-29] MEDS ORDERED: SODIUM CHLORIDE 0.9% 500 ML IV ONE (15:29)
[2022-09-29] MEDS ORDERED: hydrALAZINE 20 MG/1 ML VIAL IV PRN (15:29)
[2022-09-29] MEDS ORDERED: ONDANSETRON 4 MG/2 ML VIAL IV PRN (15:29)
[2022-09-29] MEDS ORDERED: ALBUTEROL/IPRATROPIUM 3 ML NEB RESP TX PRN (17:27)
[2022-09-29] MEDS: INSULIN LISPRO 100 UNIT/ML SUBCUT SCH ×2 (17:53→21:38)
[2022-09-29] MEDS: PIPERACILLIN/TAZOBACTAM 3,375 MG in SODIUM CHLORIDE 0.9% 100 ML IV SCH (17:53)
[2022-09-29] MEDS: IPRATROPIUM 0.06% NASAL SPRAY 15 ML BOTTLE BOTH NARES SCH ×2 (17:54→21:37)
[2022-09-29] MEDS ORDERED: VANCOMYCIN INJ 2,000 MG in SODIUM CHLORIDE 0.9% 500 ML IV ONE (18:00)
[2022-09-29] MEDS ORDERED: ENOXAPARIN 40 MG/0.4 ML SYRINGE SUBCUT SCH (21:00)
[2022-09-29] MEDS: GABAPENTIN 300 MG CAPSULE PO SCH (21:36)
[2022-09-29] MEDS: CARBIDOPA/LEVODOPA CR 25-100 MG TABLET PO SCH (21:36)
[2022-09-29] MEDS: ATORVASTATIN 40 MG TABLET PO SCH (21:36)
[2022-09-29] MEDS: AZELASTINE NASAL 137 MCG/SPRAY 30 ML BOTTLE BOTH NARES SCH (21:37)
[2022-09-29] MEDS: METOPROLOL TARTRATE 50 MG TABLET PO SCH (21:37)
[2022-09-29] MEDS: cloNIDine 0.1 MG TABLET PO SCH (21:37)
[2022-09-29] MEDS ORDERED: IBUPROFEN 400 MG TABLET PO PRN (22:02)
[2022-09-29] MEDS ORDERED: PROMETHAZINE 25 MG/1 ML VIAL IM ONE (22:02)
[2022-09-29] MEDS: guaiFENesin/CODEINE 5 ML LIQUID PO PRN (22:50)
[2022-09-30] MEDS: PIPERACILLIN/TAZOBACTAM 3,375 MG in SODIUM CHLORIDE 0.9% 100 ML IV SCH ×2 (04:25→15:56)
[2022-09-30 05:29] LABS: Eosinophils % 0.8 % (0.00-10.9); Hematocrit 30.6 VOL% (42.0-52.0); Hemoglobin 9.7 GM/DL (14.0-18.0); Immature Granulocytes % 0.5 %; Immature Granulocytes Absolute 0.02 #; Lymphocytes # 0.9 10*3/uL (1.4-4.0); Lymphocytes % 23.8 % (21.2-54.2); Mean Corpuscular HGB Conc 31.7 GM/DL (32-36); Mean Corpuscular Volume 90.5 FL (87-102); Mean Platelet Volume 11.4 FL (9.6-12.0); Monocytes # 0.4 10*3/uL (0.11-0.8); Monocytes % 9.5 % (1.7-12.7); Neutrophils % 64.4 % (38.7-73.9); Platelet Count 143 T/CUMM (130-400); Red Blood Count 3.38 MC/CUMM (3.8-5.5); Red Cell Distribution Width 17.2 % (9.3-17.3); White Blood Count 3.9 T/CUMM (4-12)
[2022-09-30 05:52] LABS: Calcium 8.5 MG/DL (8.5-10.1); Osmolality,Calculated 285.5 MOS/KG (273-304); Potassium 4.5 MMOL/L (3.5-5.1)
[2022-09-30] MEDS: LEVOTHYROXINE 75 MCG TABLET PO SCH (06:59)
[2022-09-30] MEDS: INSULIN LISPRO 100 UNIT/ML SUBCUT SCH ×4 (08:18→21:25)
[2022-09-30] MEDS: PANTOPRAZOLE 40 MG VIAL IV SCH (08:39)
[2022-09-30] MEDS: amLODIPine 10 MG TABLET PO SCH (08:40)
[2022-09-30] MEDS: MONTELUKAST 10 MG TABLET PO SCH (08:40)
[2022-09-30] MEDS: ASPIRIN EC 81 MG TABLET PO SCH (08:40)
[2022-09-30] MEDS: calcitrioL 0.25 MCG CAPSULE PO SCH (08:40)
[2022-09-30] MEDS: METOPROLOL TARTRATE 50 MG TABLET PO SCH ×2 (08:41→20:34)
[2022-09-30] MEDS: CINACALCET 30 MG TABLET PO SCH (08:41)
[2022-09-30] MEDS: LOSARTAN 50 MG TABLET PO SCH (08:41)
[2022-09-30] MEDS: CARBIDOPA/LEVODOPA CR 25-100 MG TABLET PO SCH ×2 (08:41→20:34)
[2022-09-30] MEDS: cloNIDine 0.1 MG TABLET PO SCH ×2 (08:41→21:25)
[2022-09-30] MEDS: CLOPIDOGREL 75 MG TABLET PO SCH (08:41)
[2022-09-30] MEDS: TAMSULOSIN 0.4 MG CAPSULE PO SCH (08:42)
[2022-09-30] MEDS: IPRATROPIUM 0.06% NASAL SPRAY 15 ML BOTTLE BOTH NARES SCH ×4 (08:52→20:35)
[2022-09-30] MEDS: AZELASTINE NASAL 137 MCG/SPRAY 30 ML BOTTLE BOTH NARES SCH ×2 (08:52→20:35)
[2022-09-30] MEDS ORDERED: EPOETIN ALFA-EPBX 4,000 UNIT/ML VIAL IV PRN (08:52)
[2022-09-30] MEDS ORDERED: VANCOMYCIN INJ 500 MG in SODIUM CHLORIDE 0.9% 100 ML IV ONE (17:00)
[2022-09-30] MEDS: GABAPENTIN 300 MG CAPSULE PO SCH (20:34)
[2022-09-30] MEDS: ATORVASTATIN 40 MG TABLET PO SCH (20:34)
[2022-09-30] MEDS: guaiFENesin/CODEINE 5 ML LIQUID PO PRN (20:34)
[2022-09-30] MEDS: HEPARIN 5,000 UNIT/1 ML VIAL SUBCUT SCH (20:35)
[2022-10-01] MEDS: PIPERACILLIN/TAZOBACTAM 3,375 MG in SODIUM CHLORIDE 0.9% 100 ML IV SCH ×2 (05:50→17:58)
[2022-10-01] MEDS: LEVOTHYROXINE 75 MCG TABLET PO SCH (05:50)
[2022-10-01] MEDS: INSULIN LISPRO 100 UNIT/ML SUBCUT SCH ×4 (08:17→22:16)
[2022-10-01 08:26] LABS: Eosinophils # 0.3 10*3/uL (0.0-0.87); Eosinophils % 7.5 % (0.00-10.9); Hematocrit 30.5 VOL% (42.0-52.0); Hemoglobin 9.5 GM/DL (14.0-18.0); Immature Granulocytes % 0.5 %; Immature Granulocytes Absolute 0.02 #; Lymphocytes # 1.1 10*3/uL (1.4-4.0); Lymphocytes % 26.3 % (21.2-54.2); Mean Corpuscular HGB Conc 31.1 GM/DL (32-36); Mean Corpuscular Volume 91.3 FL (87-102); Mean Platelet Volume 11.5 FL (9.6-12.0); Monocytes # 0.3 10*3/uL (0.11-0.8); Monocytes % 7.7 % (1.7-12.7); Platelet Count 178 T/CUMM (130-400); Red Blood Count 3.34 MC/CUMM (3.8-5.5); Red Cell Distribution Width 17.2 % (9.3-17.3); White Blood Count 4.1 T/CUMM (4-12)
[2022-10-01 08:48] LABS: Calcium 8.2 MG/DL (8.5-10.1); Osmolality,Calculated 285.5 MOS/KG (273-304); Potassium 4.3 MMOL/L (3.5-5.1)
[2022-10-01] MEDS ORDERED: VANCOMYCIN INJ 500 MG in SODIUM CHLORIDE 0.9% 100 ML IV PRN (10:05)
[2022-10-01] MEDS: IPRATROPIUM 0.06% NASAL SPRAY 15 ML BOTTLE BOTH NARES SCH ×4 (12:03→22:17)
[2022-10-01] MEDS: cloNIDine 0.1 MG TABLET PO SCH ×2 (12:14→22:16)
[2022-10-01] MEDS: TAMSULOSIN 0.4 MG CAPSULE PO SCH (12:14)
[2022-10-01] MEDS: ASPIRIN EC 81 MG TABLET PO SCH (12:14)
[2022-10-01] MEDS: PANTOPRAZOLE 40 MG VIAL IV SCH (12:15)
[2022-10-01] MEDS: CINACALCET 30 MG TABLET PO SCH (12:15)
[2022-10-01] MEDS: LOSARTAN 50 MG TABLET PO SCH (12:15)
[2022-10-01] MEDS: calcitrioL 0.25 MCG CAPSULE PO SCH (12:15)
[2022-10-01] MEDS: amLODIPine 10 MG TABLET PO SCH (12:15)
[2022-10-01] MEDS: CARBIDOPA/LEVODOPA CR 25-100 MG TABLET PO SCH ×2 (12:15→22:16)
[2022-10-01] MEDS: MONTELUKAST 10 MG TABLET PO SCH (12:15)
[2022-10-01] MEDS: CLOPIDOGREL 75 MG TABLET PO SCH (12:15)
[2022-10-01] MEDS: METOPROLOL TARTRATE 50 MG TABLET PO SCH ×2 (12:15→22:16)
[2022-10-01] MEDS: AZELASTINE NASAL 137 MCG/SPRAY 30 ML BOTTLE BOTH NARES SCH ×2 (12:17→22:17)
[2022-10-01] MEDS: HEPARIN 5,000 UNIT/1 ML VIAL SUBCUT SCH ×2 (12:19→22:15)
[2022-10-01] MEDS ORDERED: VANCOMYCIN INJ 500 MG in SODIUM CHLORIDE 0.9% 100 ML IV ONE (17:00)
[2022-10-01] MEDS: GABAPENTIN 300 MG CAPSULE PO SCH (22:16)
[2022-10-01] MEDS: ATORVASTATIN 40 MG TABLET PO SCH (22:16)
[2022-10-02] MEDS: PIPERACILLIN/TAZOBACTAM 3,375 MG in SODIUM CHLORIDE 0.9% 100 ML IV SCH ×2 (04:26→15:38)
[2022-10-02] MEDS: LEVOTHYROXINE 75 MCG TABLET PO SCH (06:14)
[2022-10-02 06:31] LABS: Basophils % 0.9 % (0.0-0.8); Eosinophils # 0.3 10*3/uL (0.0-0.87); Eosinophils % 5.8 % (0.00-10.9); Hematocrit 33.2 VOL% (42.0-52.0); Hemoglobin 10.4 GM/DL (14.0-18.0); Immature Granulocytes % 0.9 %; Immature Granulocytes Absolute 0.04 #; Lymphocytes # 1.2 10*3/uL (1.4-4.0); Lymphocytes % 27.6 % (21.2-54.2); Mean Corpuscular HGB Conc 31.3 GM/DL (32-36); Mean Corpuscular Volume 92.5 FL (87-102); Mean Platelet Volume 11.2 FL (9.6-12.0); Monocytes # 0.4 10*3/uL (0.11-0.8); Monocytes % 8.1 % (1.7-12.7); Neutrophils % 56.7 % (38.7-73.9); Platelet Count 183 T/CUMM (130-400); Red Blood Count 3.59 MC/CUMM (3.8-5.5); Red Cell Distribution Width 17.2 % (9.3-17.3); White Blood Count 4.3 T/CUMM (4-12)
[2022-10-02 06:40] LABS: Calcium 8.1 MG/DL (8.5-10.1); Osmolality,Calculated 287.4 MOS/KG (273-304); Potassium 4.9 MMOL/L (3.5-5.1)
[2022-10-02] MEDS: INSULIN LISPRO 100 UNIT/ML SUBCUT SCH ×4 (07:39→21:52)
[2022-10-02] MEDS ORDERED: EPOETIN ALFA-EPBX 3,000 UNIT/ML VIAL IV PRN (08:33)
[2022-10-02] MEDS: cloNIDine 0.1 MG TABLET PO SCH ×2 (09:06→21:52)
[2022-10-02] MEDS: calcitrioL 0.25 MCG CAPSULE PO SCH (09:07)
[2022-10-02] MEDS: LOSARTAN 50 MG TABLET PO SCH (09:07)
[2022-10-02] MEDS: HEPARIN 5,000 UNIT/1 ML VIAL SUBCUT SCH ×2 (09:07→21:52)
[2022-10-02] MEDS: CARBIDOPA/LEVODOPA CR 25-100 MG TABLET PO SCH ×2 (09:07→21:52)
[2022-10-02] MEDS: ASPIRIN EC 81 MG TABLET PO SCH (09:07)
[2022-10-02] MEDS: CLOPIDOGREL 75 MG TABLET PO SCH (09:07)
[2022-10-02] MEDS: METOPROLOL TARTRATE 50 MG TABLET PO SCH ×2 (09:07→21:52)
[2022-10-02] MEDS: amLODIPine 10 MG TABLET PO SCH (09:07)
[2022-10-02] MEDS: TAMSULOSIN 0.4 MG CAPSULE PO SCH (09:07)
[2022-10-02] MEDS: hydrALAZINE 25 MG TABLET PO SCH ×3 (09:07→21:52)
[2022-10-02] MEDS: CINACALCET 30 MG TABLET PO SCH (09:07)
[2022-10-02] MEDS: MONTELUKAST 10 MG TABLET PO SCH (09:07)
[2022-10-02] MEDS: PANTOPRAZOLE 40 MG VIAL IV SCH (09:08)
[2022-10-02] MEDS: AZELASTINE NASAL 137 MCG/SPRAY 30 ML BOTTLE BOTH NARES SCH ×2 (09:13→21:52)
[2022-10-02] MEDS: IPRATROPIUM 0.06% NASAL SPRAY 15 ML BOTTLE BOTH NARES SCH ×4 (09:14→21:52)
[2022-10-02] MEDS: GABAPENTIN 300 MG CAPSULE PO SCH (21:52)
[2022-10-02] MEDS: ATORVASTATIN 40 MG TABLET PO SCH (21:52)
[2022-10-03] MEDS: PIPERACILLIN/TAZOBACTAM 3,375 MG in SODIUM CHLORIDE 0.9% 100 ML IV SCH (04:18)
[2022-10-03] MEDS: LEVOTHYROXINE 75 MCG TABLET PO SCH (05:30)
[2022-10-03] MEDS: INSULIN LISPRO 100 UNIT/ML SUBCUT SCH (07:29)
[2022-10-03] MEDS: IPRATROPIUM 0.06% NASAL SPRAY 15 ML BOTTLE BOTH NARES SCH ×2 (09:55→12:50)
[2022-10-03 12:22] VITALS: BP 181/77
[2022-10-03] MEDS: TAMSULOSIN 0.4 MG CAPSULE PO SCH (12:41)
[2022-10-03] MEDS: METOPROLOL TARTRATE 50 MG TABLET PO SCH (12:42)
[2022-10-03] MEDS: ASPIRIN EC 81 MG TABLET PO SCH (12:42)
[2022-10-03] MEDS: CARBIDOPA/LEVODOPA CR 25-100 MG TABLET PO SCH (12:42)
[2022-10-03] MEDS: cloNIDine 0.1 MG TABLET PO SCH (12:42)
[2022-10-03] MEDS: amLODIPine 10 MG TABLET PO SCH (12:43)
[2022-10-03] MEDS: CLOPIDOGREL 75 MG TABLET PO SCH (12:43)
[2022-10-03] MEDS: calcitrioL 0.25 MCG CAPSULE PO SCH (12:43)
[2022-10-03] MEDS: CINACALCET 30 MG TABLET PO SCH (12:43)
[2022-10-03] MEDS: LOSARTAN 50 MG TABLET PO SCH (12:43)
[2022-10-03] MEDS: hydrALAZINE 25 MG TABLET PO SCH (12:44)
[2022-10-03] MEDS: MONTELUKAST 10 MG TABLET PO SCH (12:44)
[2022-10-03] MEDS: PANTOPRAZOLE 40 MG VIAL IV SCH (12:45)
[2022-10-03] MEDS: HEPARIN 5,000 UNIT/1 ML VIAL SUBCUT SCH (12:47)
[2022-10-03] MEDS: AZELASTINE NASAL 137 MCG/SPRAY 30 ML BOTTLE BOTH NARES SCH (12:48)
== END 2022-10-03 14:25 | disposition home or self-care (01) | DRG 193 ==
LOC: N.ED 10:01 → OBSVTOIN 15:29 → SUATTDRO 15:29 → N.EDINP 15:29 → INTOOBSV 15:29 → N.TELEN 15:40
PROVIDERS: ADMIT Internal Medicine; ATTEND Internal Medicine